=== PATIENT | male | born 1990 | race Caucasian/White ===

== ENCOUNTER 2016-09-06 18:37 | Emergency (ER) | payer SELFPAY ==
[2016-09-06] MEDS ORDERED: NORMAL SALINE 1000 ML 1,000 ML IV ONE (18:58)
[2016-09-06] MEDS ORDERED: MORPHINE SULFATE 10 MG/ML INJ IV ONE (18:58)
--- NOTE | 2016-09-06 18:58 | ER Document Report ---
ED Medical Screen (RME) - General Chief Complaint: Abdominal Pain Stated Complaint: RIGHT SIDE ABDOMINAL PAIN Time seen by provider: 18:56 Mode of Arrival: Wheelchair Information source: Patient Notes: 26-year-old male complaining of right lower quadrant abdominal pain that started mild 2 days ago. 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 No testicle pain no dysuria. He was nauseous yesterday. last food at 11:30am, last fluid to drink at 5 pm. TRAVEL OUTSIDE OF THE [place] IN LAST 30 DAYS: No Physical Exam - Vital signs Vitals: Temp Pulse Resp BP Pulse Ox 98.3 F 91 18 126/76 H 95 09/06/16 18:50 09/06/16 18:50 09/06/16 18:50 09/06/16 18:50 09/06/16 18:50 Course - Vital Signs Vital signs: Temp Pulse Resp BP Pulse Ox 98.3 F 91 18 126/76 H 95 09/06/16 18:50 09/06/16 18:50 09/06/16 18:50 09/06/16 18:50 09/06/16 18:50
[2016-09-06] MEDS ORDERED: ONDANSETRON HCL INJ/PF 4 MG/2 ML SDV IV ONE ×2 (18:59→22:20)
[2016-09-06 20:54] LABS: ABSOLUTE BASOPHILS # (AUTO) 0.1 10^3/uL (0.0-0.2); ABSOLUTE EOSINOPHILS # (AUTO) 0.1 10^3/uL (0.0-0.6); ABSOLUTE LYMPHOCYTES (AUTO) 2.6 10^3/uL (0.5-4.7); ABSOLUTE MONOCYTES (AUTO) 0.6 10^3/uL (0.1-1.4); BASOPHILS % (AUTO) 0.6 % (0-2); EOSINOPHILS % (AUTO) 0.6 % (0-6); HEMATOCRIT 43.9 % (37.9-51.0); HEMOGLOBIN 15.3 g/dL (13.5-17.0); LYMPHOCYTES % (AUTO) 23.2 % (13-45); MEAN CORPUSCULAR HGB CONC 34.9 g/dL (32.0-36.0); MEAN CORPUSCULAR VOLUME 83 fl (80-97); MONOCYTES % (AUTO) 5.3 % (3-13); RED BLOOD COUNT 5.27 10^6/uL (4.35-5.55); RED CELL DISTRIBUTION WIDTH 13.1 % (11.5-14.0); SEGMENTED NEUTROPHILS % (AUTO) 70.3 % (42-78); WHITE BLOOD COUNT 11.3 10^3/uL (4.0-10.5)
[2016-09-06 21:08] LABS: ALANINE AMINOTRANSFERASE 50 U/L (21-72); ALKALINE PHOSPHATASE 58 U/L (38-126); ANION GAP 10 (5-19); ASPARTATE AMINO TRANSFERASE 33 U/L (17-59); BILIRUBIN,TOTAL 1.4 mg/dL (0.2-1.3); BLOOD UREA NITROGEN 14 mg/dL (7-20); CALCIUM 9.2 mg/dL (8.4-10.2); CARBON DIOXIDE 28 mmol/L (22-30); CHLORIDE 103 mmol/L (98-107); CREATININE RESULT 0.98 mg/dL (0.52-1.25); GLUCOSE 83 mg/dL (75-110); SODIUM 141.2 mmol/L (137-145); TOTAL PROTEIN 6.6 g/dL (6.3-8.2)
[2016-09-06 21:43] LABS: APPEARANCE,URINE CLEAR; BILIRUBIN,URINE NEGATIVE (NEGATIVE); GLUCOSE, URINE NEGATIVE (NEGATIVE); KETONES,URINE NEGATIVE (NEGATIVE); LEUKOCYTE ESTERASE,URINE NEGATIVE (NEGATIVE); NITRITE,URINE NEGATIVE (NEGATIVE); PROTEIN,URINE NEGATIVE (NEGATIVE); URINE SPECIFIC GRAVITY 1.014; UROBILINOGEN,URINE NEGATIVE mg/dL (<2.0)
--- NOTE | 2016-09-06 22:20 | ER Document Report ---
ED GI/ - General Mode of Arrival: Wheelchair Information source: Patient TRAVEL OUTSIDE OF THE [place] IN LAST 30 DAYS: No - HPI Patient complains to provider of: Abdominal pain - RLQ Onset: Other - 2 days ago Location: RLQ Associated symptoms: Other - see above <ROBIN CORTEZ - Last Filed: 09/06/16 22:43> <ERNESTO RAM - Last Filed: 09/07/16 00:20> - General Chief Complaint: Abdominal Pain Stated Complaint: RIGHT SIDE ABDOMINAL PAIN Notes: 26 year old male with history of Aspergers presents to the ED complaining of RLQ abdominal pain that started 2 days ago but became worse today. Patient's mother states that she received a call at 1730 this evening stating that her son was doubled over in pain while at work. Patient states that the pain has been intermittent the past 2 days, but is more constant now. Patient states that he had a normal bowel movement while in the ED. Patient denies testicular pain, dysuria, or back pain. Patient denies history of UTIs. (ROBIN CORTEZ) - Related Data Allergies/Adverse Reactions: lorazepam [From Ativan] Allergy (Verified 09/06/16 19:00) steroids Allergy (Uncoded 09/06/16 19:00) Past Medical History - General Information source: Patient - Social History Smoking Status: Never Smoker Frequency of alcohol use: None Drug Abuse: None Family History: Reviewed & Not Pertinent Patient has suicidal ideation: No Patient has homicidal ideation: No Psychiatric Medical History: Reports: Hx Attention Deficit Hyperactivity Disorder Past Surgical History: Reports: Hx Cholecystectomy - Immunizations Hx Diphtheria, Pertussis, Tetanus Vaccination: Yes <ROBIN CORTEZ - Last Filed: 09/06/16 22:43> Review of Systems - Review of Systems Constitutional: No symptoms reported EENT: No symptoms reported Cardiovascular: No symptoms reported Respiratory: No symptoms reported Gastrointestinal: See HPI, Abdominal pain - RLQ, Last bowel movement - in ED prior to being seen Genitourinary: No symptoms reported. denies: Dysuria Male Genitourinary: No symptoms reported. denies: Testicular pain Musculoskeletal: No symptoms reported. denies: Back pain Skin: No symptoms reported Hematologic/Lymphatic: No symptoms reported Neurological/Psychological: No symptoms reported -: Yes All other systems reviewed and negative <ROBIN CORTEZ - Last Filed: 09/06/16 22:43> Physical Exam - Vital signs Interpretation: Normal - General General appearance: Alert In distress: None - HEENT Head: Normocephalic, Atraumatic Eyes: Normal Extraocular movements intact: Yes Pupils: PERRL - Respiratory Respiratory status: No respiratory distress Breath sounds: Normal - Cardiovascular Rhythm: Regular Heart sounds: Normal auscultation - Abdominal Inspection: Normal Distension: No distension Bowel sounds: Normal Tenderness: Tender - RLQ tenderness to palpation. No: Guarding, Rebound - Back Back: Normal - Extremities General upper extremity: Normal inspection, Normal ROM General lower extremity: Normal inspection, Normal ROM - Neurological Neuro grossly intact: Yes Cognition: Normal Orientation: AAOx4 [place] Coma Scale Eye Opening: Spontaneous [place] Coma Scale Verbal: Oriented [place] Coma Scale Motor: Obeys Commands [place] Coma Scale Total: 15 Speech: Normal - Psychological Associated symptoms: Normal affect, Normal mood - Skin Skin Temperature: Warm Skin Moisture: Dry Skin Color: Normal <ROBIN CORTEZ - Last Filed: 09/06/16 22:43> <ERNESTO RAM - Last Filed: 09/07/16 00:20> - Vital signs Vitals: Temp Pulse Resp BP Pulse Ox 98.3 F 91 18 126/76 H 95 09/06/16 18:50 09/06/16 18:50 09/06/16 18:50 09/06/16 18:50 09/06/16 18:50 (ROBIN CORTEZ) (ERNESTO RAM) Course - Laboratory Result Diagrams: 09/06/16 20:28 09/06/16 20:28 <ROBIN CORTEZ - Last Filed: 09/06/16 22:43> - Laboratory Result Diagrams: 09/06/16 20:28 09/06/16 20:28 <ERNESTO RAM - Last Filed: 09/07/16 00:20> - Re-evaluation Re-evalutation: 09/06/16 22:59 I personally performed the services described in the documentation, reviewed and edited the documentation which was dictated to my scribe in my presence, and it accurately records my words and actions. She presents emergency Department with a 2 day history of right-sided abdominal pain which got worse and severe work tonight doubled him over. He denies any history of trauma he is nauseated but not vomiting denies any diarrhea or blood in the stool history of Crohn's disease or ulcerative colitis. He is circumcised and denies any testicular pain or urinary symptoms. He also denies any flank pain fever or chills says his appetite is been decent. On physical examination his abdomen is soft is got tenderness in the right lower quadrant without rebound or rigidity. He was able to drink a bottle of contrast that was too nauseated refuses to drink anymore. He is currently going for his CT scan of the abdomen and pelvis. 09/07/16 00:[address] scan of the abdomen and pelvis negative for acute pathology including negative for acute appendicitis. Patient without guarding rebound rigidity peritoneal signs we'll DC 1-2 day follow primary care physician and discussed reasons for ED return sooner (ERNESTO RAM) - Vital Signs Vital signs: Temp Pulse Resp BP Pulse Ox 98.3 F 91 18 126/76 H 95 09/06/16 18:50 09/06/16 18:50 09/06/16 21:00 09/06/16 18:50 09/06/16 18:50 (ROBIN CORTEZ) (ERNESTO RAM) - Laboratory Laboratory results interpreted by me: 09/06/16 09/06/16 20:28 20:28 WBC 11.3 H Total Bilirubin 1.4 H (ROBIN CORTEZ) (ERNESTO RAM) Discharge <ROBIN CORTEZ - Last Filed: 09/06/16 22:43> <ERNESTO RAM - Last Filed: 09/07/16 00:20> - Discharge Clinical Impression: Abdominal pain Qualifiers: Abdominal location: right lower quadrant Qualified Code(s): R10.31 - Right lower quadrant pain Condition: Stable Disposition: HOME, SELF-CARE Additional Instructions: Abdominal Pain There are many causes of abdominal pain. Pain can mean a serious problem requiring surgery (such as appendicitis). It can also be an innocent problem that goes away on its own (such as a viral infection). Often, time must pass to determine the cause of pain. The physician does not feel that hospitalization is necessary, at present. Things may change within the next 24 hours. Call the doctor or come back for re- examination if any problems occur, such as: (1) Pain that becomes more severe, steady, or becomes concentrated in one specific area. Also, pain that is more severe with movement or coughing. (2) Vomiting that persists or becomes more frequent. (3) Blood in the vomitus, urine, or bowel movements. Blood in the stool may have a tarry or black appearance. (4) Shaking chills or fever greater than 100 degrees F. (5) The abdomen becomes more distended or swollen. (6) Bowel movements cease. (7) Failure to improve as expected. Referrals: MARION TREVIZO MD [Primary Care Provider] - Follow up tomorrow (Return to the ER sooner for increasing worsening or new symptoms) Scribe Documentation - Scribe Written by Mal:: Mal Drummond, 09/06/2016 22:48 acting as scribe for :: Gonzalez <ROBIN CORTEZ - Last Filed: 09/06/16 22:43>
[2016-09-07 01:10] VITALS: BP 127/84
== END 2016-09-07 01:10 | disposition home or self-care (01) ==
LOC: ER 18:37
DX: R10.31 Right lower quadrant pain (principal); Z90.49 Acquired absence of other specified parts of digestive tract
CPT/HCPCS: 99284; 96361; 96374; 96375; 36415; 85025; 80053; 81001; 74177; J2270; J2405; J7030

== ENCOUNTER 2019-09-08 19:27 | Emergency (ER) | payer SELFPAY ==
--- NOTE | 2019-09-08 20:15 | ER Document Report ---
ED Medical Screen (RME) - General Chief Complaint: Chest Pain Stated Complaint: CHEST PAIN,SHORTNESS OF BREATH Time Seen by Provider: 09/08/19 20:13 Primary Care Provider: MARION TREVIZO MD [Primary Care Provider] - Follow up as needed TRAVEL OUTSIDE OF THE [place] IN LAST 30 DAYS: No - HPI Notes: 09/08/19 20:15 Patient is a 29-year-old male with a history of Asperger's and ADHD who presents with mother complaining of an electricity type pain from his left clavicle area that radiates down into his left chest area that began this evening without any precipitating event. He does have some shortness of breath when the pain hits. He has not had any abdominal pain, nausea, vomiting, or fevers. No history of DVT or PE. No history of coronary artery disease. I have treated and performed a rapid initial assessment of this patient. A comprehensive ED assessment and evaluation of the patient, analysis of test results and completion of medical decision making process will be conducted by additional ED providers. PHYSICAL EXAMINATION: GENERAL: Well-appearing, well-nourished and in no acute distress. A&Ox4. Answers questions appropriately. Heart: RRR Lungs: CTAB Chest wall: There is some reproducibility to the tenderness to the left chest wall. - Related Data Allergies/Adverse Reactions: lorazepam [From Ativan] Allergy (Verified 09/08/19 20:06) steroids Allergy (Uncoded 09/06/16 19:00) Past Medical History Psychiatric Medical History: Reports: Hx Attention Deficit Hyperactivity Disorder Past Surgical History: Reports: Hx Cholecystectomy - Immunizations Hx Diphtheria, Pertussis, Tetanus Vaccination: Yes Physical Exam - Vital signs Vitals: Temp Pulse Resp BP Pulse Ox 98.0 F 83 20 109/69 95 09/08/19 19:39 09/08/19 19:39 09/08/19 19:39 09/08/19 19:39 09/08/19 19:39 Course - Vital Signs Vital signs: Temp Pulse Resp BP Pulse Ox 98.0 F 83 20 109/69 95 09/08/19 19:39 09/08/19 19:39 09/08/19 19:39 09/08/19 19:39 09/08/19 19:39 Doctor's Discharge - Discharge Referrals: MARION TREVIZO MD [Primary Care Provider] - Follow up as needed
[2019-09-08] MEDS ORDERED: ACETAMINOPHEN 325 MG TABLET PO ONE (20:17)
[2019-09-08 20:49] LABS: ABSOLUTE BASOPHILS # (AUTO) 0.1 10^3/uL (0.0-0.2); ABSOLUTE EOSINOPHILS # (AUTO) 0.1 10^3/uL (0.0-0.6); ABSOLUTE LYMPHOCYTES (AUTO) 2.5 10^3/uL (0.5-4.7); ABSOLUTE MONOCYTES (AUTO) 0.6 10^3/uL (0.1-1.4); ABSOLUTE NEUT (AUTO) 4.3 10^3/uL (1.7-8.2); EOSINOPHILS % (AUTO) 0.8 % (0-6); HEMATOCRIT 41.5 % (37.9-51.0); HEMOGLOBIN 14.4 g/dL (13.5-17.0); MEAN CORPUSCULAR HEMOGLOBIN 29.4 pg (27.0-33.4); MEAN CORPUSCULAR HGB CONC 34.8 g/dL (32.0-36.0); MEAN CORPUSCULAR VOLUME 85 fl (80-97); MONOCYTES % (AUTO) 8.2 % (3-13); PLATELET COUNT 221 10^3/uL (150-450); RED BLOOD COUNT 4.92 10^6/uL (4.35-5.55); RED CELL DISTRIBUTION WIDTH 13.3 % (11.5-14.0); TOTAL CELLS COUNTED % (AUTO) 100 %; WHITE BLOOD COUNT 7.6 10^3/uL (4.0-10.5)
--- NOTE | 2019-09-08 20:54 | RADIOLOGY REPORT (SQ) ---
EXAM DESCRIPTION: XR CHEST 1 VIEW COMPLETED DATE/TME: 09/08/2019 20:17 CLINICAL HISTORY: 29 years, Male, CP COMPARISON: None. NUMBER OF VIEWS: TECHNIQUE: LIMITATIONS: None. FINDINGS: No evidence of pulmonary infiltrate or pleural effusion. The heart and mediastinum are unremarkable. Pulmonary vascularity appears normal. IMPRESSION: No acute finding. copyright 2010 [facility]- All Rights Reserved
[2019-09-08 21:09] LABS: ALBUMIN 4.3 g/dL (3.5-5.0); ALKALINE PHOSPHATASE 54 U/L (38-126); ANION GAP 12 (5-19); ASPARTATE AMINO TRANSFERASE 23 U/L (17-59); BILIRUBIN,DIRECT 0.1 mg/dL (0.0-0.4); BILIRUBIN,TOTAL 1.2 mg/dL (0.2-1.3); BLOOD UREA NITROGEN 8 mg/dL (7-20); CALCIUM 9.5 mg/dL (8.4-10.2); CARBON DIOXIDE 27 mmol/L (22-30); CHLORIDE 102 mmol/L (98-107); GLUCOSE 80 mg/dL (75-110); POTASSIUM 3.9 mmol/L (3.6-5.0); TOTAL PROTEIN 7.5 g/dL (6.3-8.2)
[2019-09-08] MEDS ORDERED: KETOROLAC TROMETHAMINE INJ/PF 30 MG/1 ML SDV IV ONE (21:37)
--- NOTE | 2019-09-08 23:19 | ER Document Report ---
Entered by IFTIKHAR MCKEON SCRIBE 09/08/192039 Acting as scribe for:VIDAL CHAND IV, MD ED General - General Chief Complaint: Chest Pain Stated Complaint: CHEST PAIN,SHORTNESS OF BREATH Time Seen by Provider: 09/08/19 20:13 Primary Care Provider: MARION TREVIZO MD [Primary Care Provider] - Follow up as needed Mode of Arrival: Ambulatory Information source: Patient Notes: This 29 year old male patient presents to the emergency department today with complaints of reproducible left sided chest pain. Patient reports that he was sitting on his bed watching tv when he felt a "jolt of lightning" that radiated from his left shoulder to his left chest. This pain is reproducible with movement and anterior chest wall palpation. Patient also mentions that certain movements seem to reproduce his pain. Patient denies a history of chest pain or any cardiac history. TRAVEL OUTSIDE OF THE [place] IN LAST 30 DAYS: No - Related Data Allergies/Adverse Reactions: lorazepam [From Ativan] Allergy (Verified 09/08/19 20:06) steroids Allergy (Uncoded 09/06/16 19:00) Past Medical History - General Information source: Patient - Social History Smoking Status: Never Smoker Cigarette use (# per day): No Chew tobacco use (# tins/day): No Frequency of alcohol use: None Drug Abuse: None Lives with: Family Family History: Reviewed & Not Pertinent Patient has suicidal ideation: No Patient has homicidal ideation: No Psychiatric Medical History: Reports: Hx Attention Deficit Hyperactivity Disorder Past Surgical History: Reports: Hx Cholecystectomy - Immunizations Hx Diphtheria, Pertussis, Tetanus Vaccination: Yes Review of Systems - Review of Systems Constitutional: No symptoms reported EENT: No symptoms reported Cardiovascular: See HPI, Chest pain - reproducible Respiratory: No symptoms reported Gastrointestinal: No symptoms reported Genitourinary: No symptoms reported Male Genitourinary: No symptoms reported Musculoskeletal: No symptoms reported Skin: No symptoms reported Hematologic/Lymphatic: No symptoms reported Neurological/Psychological: No symptoms reported -: Yes All other systems reviewed and negative Physical Exam - Vital signs Vitals: Temp Pulse Resp BP Pulse Ox 98.0 F 83 20 109/69 95 09/08/19 19:39 09/08/19 19:39 09/08/19 19:39 09/08/19 19:39 09/08/19 19:39 Interpretation: Normal - General General appearance: Appears well, Alert - HEENT Head: Normocephalic, Atraumatic Eyes: Normal Pupils: PERRL - Respiratory Respiratory status: No respiratory distress Chest status: Nontender Breath sounds: Normal Chest palpation: Normal - Cardiovascular Rhythm: Regular Heart sounds: Normal auscultation Murmur: No - Abdominal Inspection: Normal Distension: No distension Bowel sounds: Normal Tenderness: Nontender Organomegaly: No organomegaly - Back Back: Normal, Nontender - Extremities General upper extremity: Normal inspection, Nontender, Normal color, Normal ROM, Normal temperature General lower extremity: Normal inspection, Nontender, Normal color, Normal ROM, Normal temperature, Normal weight bearing. No: Amisha's sign - Neurological Neuro grossly intact: Yes Cognition: Normal Orientation: AAOx4 [place] Coma Scale Eye Opening: Spontaneous [place] Coma Scale Verbal: Oriented [place] Coma Scale Motor: Obeys Commands [place] Coma Scale Total: 15 Speech: Normal Motor strength normal: LUE, RUE, LLE, RLE Sensory: Normal - Psychological Associated symptoms: Normal affect, Normal mood - Skin Skin Temperature: Warm Skin Moisture: Dry Skin Color: Normal Course - Re-evaluation Re-evalutation: 09/08/19 23:27 Patient states his pain has improved and is currently down to a 2 on a 0-5 scale after IV Toradol. Results of ED MSE discussed with patient and patient's mother. All questions were answered. Emergency signs and symptoms, reasons to return to the emergency department discussed with patient and patient's mother. - Vital Signs Vital signs: Temp Pulse Resp BP Pulse Ox 98.0 F 83 20 109/69 98 09/08/19 19:39 09/08/19 19:39 09/08/19 19:39 09/08/19 19:39 09/08/19 20:35 - Laboratory Result Diagrams: 09/08/19 20:35 09/08/19 20:35 - EKG Interpretation by Me Additional EKG results interpreted by me: 09/08/19 20:48 EKG obtained on 09/08/2019 at 1943 hrs. was interpreted by this MD. Findings: Normal sinus rhythm, rate 76, normal axis, P waves proceed QRS complexes, QRS complexes appear narrow, there are no obvious patterns of ST segment elevation or depression to suggest myocardial ischemia or infarction. Impression normal sinus rhythm with nonspecific ST segments. Discharge - Discharge Clinical Impression: Acute chest wall pain Condition: Good Disposition: HOME, SELF-CARE Instructions: Chest Pain of Unclear Cause ([facility]) Additional Instructions: Return to the Emergency Department without delay if any worse. HOME CARE INSTRUCTIONS & INFORMATION: Thank you for choosing us for your medical needs. We hope you're satisfied with the care you received. After you leave, you must properly care for your problem and, at the same time, observe its progress. Any condition can change. Some illnesses can change rapidly over hours or days. If your condition worsens, return to the Emergency Department or see your physician promptly. ABOUT YOUR X-RAYS AND EKG'S: If you had an EKG or X-rays taken, they have been read by the Emergency Physician. The X-rays and EKG's will also be read by a Radiologist or Pattern Shop Supervisor within 24 hours. If discrepancies are noted, you will be notified by telephone. Please be certain the ED has a correct telephone number & address where you can be reached. Also, realize that some fractures or abnormalities do not show up on initial X-rays. If your symptoms continue, see your physician. ABOUT YOUR LABORATORY TEST: If you had laboratory tests, the results have been reviewed by the Emergency Physician. Some test results (for example cultures) may not be available for several days. You will be contacted if any test result shows you need additional treatment. Please be certain the ED has a correct telephone number and address where you can be reached. ABOUT YOUR MEDICATIONS: You will receive instructions on how to take your medicine on the prescription label you receive. Additional information may be provided by the Pharmacy. If you have questions afterwards, call the ED for clarification or further instructions. Some prescribed medications may cause drowsiness. Do not perform tasks such as driving a car or operating machinery without consulting your Pharmacist. If you feel you need a refill of pain medication, your condition will need re-evaluation. Please do not call for a refill of any medication. ABOUT YOUR SIGNATURE: Signature of this document acknowledges to followin. Understanding that you received emergency treatment and that you may be released before al medical problems are known or treated. Please be certain the ED has a correct phone number & address where you can be reached. 2. Acknowledgement that you will arrange for follow-up care as recommended. 3. Authorization for the Emergency Physician to provide information to your follow-up Physician in order to maximize your care. AT ANY TIME, IF YOUR SYMPTOMS CHANGE SIGNIFICANTLY OR WORSEN OR YOU DEVELOP NEW SYMPTOMS, RETURN TO THE EMERGENCY DEPARTMENT IMMEDIATELY FOR RE-EVALUATION. OUR GOAL IS TO PROVIDE EXCELLENT MEDICAL CARE! WE HOPE THAT WE HAVE MET YOUR EXPECTATIONS DURING YOUR EMERGENCY DEPARTMENT VISIT AND THAT YOU FEEL YOU HAVE RECEIVED EXCELLENT CARE! Referrals: MARION TREVIZO MD [Primary Care Provider] - Follow up as needed I personally performed the services described in the documentation, reviewed and edited the documentation which was dictated to the scribe in my presence, and it accurately records my words and actions.
[2019-09-08 23:36] VITALS: BP 111/71
--- NOTE | 2019-09-09 17:48 | EKG REPORT ---
SEVERITY:- NORMAL ECG - SINUS RHYTHM : Confirmed by: Poli Sher 09-Sep-2019 17:48:29
== END 2019-09-08 23:40 | disposition home or self-care (01) ==
LOC: ER 19:27
DX: R07.89 Other chest pain (principal); R06.02 Shortness of breath; M25.512 Pain in left shoulder
CPT/HCPCS: 93005; 99284; 96374; 36415; 85025; 80053; 84484; 71045; 93010; J1885

== ENCOUNTER 2019-09-24 11:47 | Emergency (ER) | payer SELFPAY ==
[2019-09-24] MEDS ORDERED: ONDANSETRON HCL INJ/PF 4 MG/2 ML SDV IV ONE (13:20)
[2019-09-24] MEDS ORDERED: MORPHINE SULFATE 10 MG/ML INJ IV ONE ×2 (13:21→16:26)
[2019-09-24] MEDS ORDERED: KETOROLAC TROMETHAMINE INJ/PF 30 MG/1 ML SDV IV ONE (13:23)
--- NOTE | 2019-09-24 13:25 | ER Document Report ---
ED Medical Screen (RME) - General Chief Complaint: Abdominal Pain Stated Complaint: ABDOMINAL PAIN Time Seen by Provider: 09/24/19 13:14 Primary Care Provider: AMRION TREVIZO MD [Primary Care Provider] - Follow up as needed Notes: Patient is a 29-year-old male with a history of celiac disease who presents emergency department with a chief complaint of abdominal pain. Mother reports the patient has complained of mid to lower abdominal pain all weekend. She reports she does have celiac disease and that this is similar to his celiac type pain. She reports this diagnosis was made 1 year ago. She reports he has been using Bentyl and Ultram without any relief. Does report 2 episodes of diarrhea that is nonbloody over the weekend. Reports nausea without vomiting. Denies fever. Mother reports that they attempted to pinpoint what exacerbated his pain but they were unable to. TRAVEL OUTSIDE OF THE [place] IN LAST 30 DAYS: No - Related Data Allergies/Adverse Reactions: lorazepam [From Ativan] Allergy (Verified 09/08/19 20:06) steroids Allergy (Uncoded 09/06/16 19:00) Home Medications: Respridol Past Medical History - Social History Chew tobacco use (# tins/day): No Frequency of alcohol use: None Drug Abuse: None Psychiatric Medical History: Reports: Hx Attention Deficit Hyperactivity Disorder Past Surgical History: Reports: Hx Cholecystectomy - Immunizations Hx Diphtheria, Pertussis, Tetanus Vaccination: Yes Physical Exam - Vital signs Vitals: Temp Pulse Resp BP Pulse Ox 98.1 F 79 18 91/58 L 100 09/24/19 11:59 09/24/19 11:59 09/24/19 11:59 09/24/19 11:59 09/24/19 11:59 - Abdominal Inspection: Normal Distension: No distension Bowel sounds: Hyperactive Tenderness: Tender - Mid to lower abdominal tenderness generalized. Course - Re-evaluation Re-evalutation: 09/24/19 13:25 Patient appears uncomfortable in triage. Will initiate IV, IV fluids, basic labs and a dose of pain medication with nausea medication. I have greeted and performed a rapid initial assessment of this patient. A comprehensive ED assessment and evaluation of the patient, analysis of test results and completion of the medical decision making process will be conducted by additional ED providers. - Vital Signs Vital signs: Temp Pulse Resp BP Pulse Ox 98.1 F 79 18 91/58 L 100 09/24/19 11:59 09/24/19 11:59 09/24/19 11:59 09/24/19 11:59 09/24/19 11:59 Doctor's Discharge - Discharge Referrals: MARION TREVIZO MD [Primary Care Provider] - Follow up as needed
[2019-09-24] MEDS ORDERED: NORMAL SALINE 1000 ML 1,000 ML IV ONE (13:53)
--- NOTE | 2019-09-24 14:04 | ER Document Report ---
ED General - General Chief Complaint: Abdominal Pain Stated Complaint: ABDOMINAL PAIN Time Seen by Provider: 09/24/19 13:14 Primary Care Provider: MARION TREVIZO MD [Primary Care Provider] - Follow up as needed Mode of Arrival: Ambulatory Information source: Patient TRAVEL OUTSIDE OF THE [place] IN LAST 30 DAYS: No - HPI Notes: Patient presents with abdominal pain. He states that this pain started approximate 2 days ago. It is been diffusely about the abdomen but is now mainly in the lower quadrants. It is severe constant and crampy. It radiates from one side of the lower abdomen to the other. He states he has been di agnosed with celiac disease by radiology equipment servicer. He states this was done by blood work as well as endoscopy. He states that he is only had one previous abdominal surgery which was a cholecystectomy. He has had vomiting and some loose stool. No problems with urination. No fevers. Patient states his pain does feel similar to previous celiac disease pain. - Related Data Allergies/Adverse Reactions: lorazepam [From Ativan] Allergy (Verified 09/08/19 20:06) steroids Allergy (Uncoded 09/06/16 19:00) Home Medications: Respridol Past Medical History - General Information source: Patient - Social History Smoking Status: Never Smoker Chew tobacco use (# tins/day): No Frequency of alcohol use: None Drug Abuse: None Family History: Reviewed & Not Pertinent Patient has suicidal ideation: No Patient has homicidal ideation: No Psychiatric Medical History: Reports: Hx Attention Deficit Hyperactivity Disorder Past Surgical History: Reports: Hx Cholecystectomy - Immunizations Hx Diphtheria, Pertussis, Tetanus Vaccination: Yes Review of Systems - Review of Systems Constitutional: Malaise, Weakness. denies: Chills, Fever Cardiovascular: denies: Chest pain, Palpitations Respiratory: denies: Cough, Short of breath -: Yes All other systems reviewed and negative Physical Exam - Vital signs Vitals: Temp Pulse Resp BP Pulse Ox 98.1 F 79 18 91/58 L 100 09/24/19 11:59 09/24/19 11:59 09/24/19 11:59 09/24/19 11:59 09/24/19 11:59 Interpretation: Normal - General General appearance: Appears well, Alert - HEENT Head: Normocephalic, Atraumatic Eyes: Normal Pupils: PERRL - Respiratory Respiratory status: No respiratory distress Chest status: Nontender Breath sounds: Normal Chest palpation: Normal - Cardiovascular Rhythm: Regular Heart sounds: Normal auscultation Murmur: No - Abdominal Inspection: Normal Distension: No distension Bowel sounds: Normal Tenderness: Tender - Patient is tender in the lower quadrants but greatest in the right lower quadrant. He does appear to have some voluntary guarding in the right lower quadrant. Organomegaly: No organomegaly - Back Back: Normal, Nontender - Extremities General upper extremity: Normal inspection, Nontender, Normal color, Normal ROM, Normal temperature General lower extremity: Normal inspection, Nontender, Normal color, Normal ROM, Normal temperature, Normal weight bearing. No: Amisha's sign - Neurological Neuro grossly intact: Yes Cognition: Normal Orientation: AAOx4 [place] Coma Scale Eye Opening: Spontaneous [place] Coma Scale Verbal: Oriented [place] Coma Scale Motor: Obeys Commands [place] Coma Scale Total: 15 Speech: Normal Motor strength normal: LUE, RUE, LLE, RLE Sensory: Normal - Psychological Associated symptoms: Normal affect, Normal mood - Skin Skin Temperature: Warm Skin Moisture: Dry Skin Color: Normal Course - Re-evaluation Re-evalutation: 09/24/19 18:42 Patient reevaluated at approximately 6:20 PM. Abdominal pain is significantly improved. He has no surgical abdominal signs. Vital signs are stable. CT scan shows no evidence of acute intra-abdominal pathology. Laboratories are stable. This appears to be an exacerbation of the patient's chronic celiac disease. Patient and mother are okay with discharge and will follow-up as an outpatient. - Vital Signs Vital signs: Temp Pulse Resp BP Pulse Ox 98.7 F 77 18 117/69 97 09/24/19 16:51 09/24/19 16:51 09/24/19 16:51 09/24/19 16:51 09/24/19 16:51 - Laboratory Result Diagrams: 09/24/19 14:15 09/24/19 14:15 - Diagnostic Test Radiology reviewed: Image reviewed, Reports reviewed Discharge - Discharge Clinical Impression: Adult celiac disease, Acute bilateral lower abdominal pain Condition: Stable Disposition: HOME, SELF-CARE Instructions: Abdominal Pain ([facility]), Oral Narcotic Medication ([facility]) Prescriptions: Hydrocodone/Acetaminophen [[place] 5-325 mg Tablet] 1 tab PO Q6 PRN 3 Days #12 tablet PRN Reason: Referrals: MARION TREVIZO MD [Primary Care Provider] - Follow up in 3-5 days
[2019-09-24 14:38] LABS: ABSOLUTE BASOPHILS # (AUTO) 0.1 10^3/uL (0.0-0.2); ABSOLUTE EOSINOPHILS # (AUTO) 0.1 10^3/uL (0.0-0.6); ABSOLUTE LYMPHOCYTES (AUTO) 2.4 10^3/uL (0.5-4.7); ABSOLUTE MONOCYTES (AUTO) 0.6 10^3/uL (0.1-1.4); ABSOLUTE NEUT (AUTO) 4.3 10^3/uL (1.7-8.2); BASOPHILS % (AUTO) 0.9 % (0-2); EOSINOPHILS % (AUTO) 0.9 % (0-6); HEMATOCRIT 42.8 % (37.9-51.0); HEMOGLOBIN 14.8 g/dL (13.5-17.0); MEAN CORPUSCULAR HEMOGLOBIN 29.6 pg (27.0-33.4); MEAN CORPUSCULAR HGB CONC 34.7 g/dL (32.0-36.0); MEAN CORPUSCULAR VOLUME 85 fl (80-97); MONOCYTES % (AUTO) 8.3 % (3-13); PLATELET COUNT 218 10^3/uL (150-450); RED BLOOD COUNT 5.02 10^6/uL (4.35-5.55); RED CELL DISTRIBUTION WIDTH 13.6 % (11.5-14.0); SEGMENTED NEUTROPHILS % (AUTO) 57.9 % (42-78); TOTAL CELLS COUNTED % (AUTO) 100 %; WHITE BLOOD COUNT 7.4 10^3/uL (4.0-10.5)
[2019-09-24 14:56] LABS: ALBUMIN 4.3 g/dL (3.5-5.0); ALKALINE PHOSPHATASE 61 U/L (38-126); ANION GAP 9 (5-19); ASPARTATE AMINO TRANSFERASE 23 U/L (17-59); BILIRUBIN,DIRECT 0.3 mg/dL (0.0-0.4); BILIRUBIN,TOTAL 1.2 mg/dL (0.2-1.3); BLOOD UREA NITROGEN 12 mg/dL (7-20); CALCIUM 9.5 mg/dL (8.4-10.2); CARBON DIOXIDE 30 mmol/L (22-30); CHLORIDE 102 mmol/L (98-107); GLUCOSE 77 mg/dL (75-110); POTASSIUM 4.1 mmol/L (3.6-5.0); TOTAL PROTEIN 7.4 g/dL (6.3-8.2)
[2019-09-24 15:04] LABS: APPEARANCE,URINE CLEAR; BILIRUBIN,URINE NEGATIVE (NEGATIVE); COLOR,URINE YELLOW; GLUCOSE, URINE NEGATIVE (NEGATIVE); KETONES,URINE NEGATIVE (NEGATIVE); LEUKOCYTE ESTERASE,URINE NEGATIVE (NEGATIVE); NITRITE,URINE NEGATIVE (NEGATIVE); PROTEIN,URINE NEGATIVE (NEGATIVE); URINE SPECIFIC GRAVITY 1.016; UROBILINOGEN,URINE NEGATIVE mg/dL (<2.0)
--- NOTE | 2019-09-24 17:42 | RADIOLOGY REPORT (SQ) ---
EXAM DESCRIPTION: CT ABD/PELVIS WITH IV ORAL COMPLETED DATE/TIME: 09/24/2019 4:30 pm REASON FOR STUDY: rlq pain COMPARISON: CT of the abdomen pelvis with contrast from 09/06/2016. TECHNIQUE: CT scan of the abdomen and pelvis performed using helical scanning technique with dynamic intravenous contrast injection. No oral contrast. Images reviewed with lung, soft tissue, and bone windows. Reconstructed coronal and sagittal MPR images reviewed. Delayed images for evaluation of the urinary system also acquired. All images stored on PACS. All CT scanners at this facility use dose modulation, iterative reconstruction, and/or weight based d osing when appropriate to reduce radiation dose to as low as reasonably achievable (ALARA). [facility]: Dose Right [facility]: CareDose [facility]: Dose Right [facility]: Teradose 4D [facility]: [employer] CONTRAST TYPE AND DOSE: Contrast/concentration: Isovue 350.00 mg/ml; Total Contrast Delivered: 98.0 ml; Total Saline Delivered: 72.0 ml RENAL FUNCTION: None required. The patient is less than 50 years old. RADIATION DOSE: CT Rad equipment meets quality standard of care and radiation dose reduction techniq ues were employed. CTDIvol: 13.4 - 17.8 mGy. DLP: 1780 mGy-cm.. LIMITATIONS: None. FINDINGS: LOWER CHEST: No acute findings LIVER: The morphology of the liver is non cirrhotic. The portal veins are patent. There is no hepat ic mass. SPLEEN: No splenomegaly or splenic mass. PANCREAS: No acute abnormality. GALLBLADDER: The gallbladder is surgically absent. ADRENAL GLANDS: No mass or asymmetry. RIGHT KIDNEY AND URETER: No solid masses. No calcifications. No hydronephrosis or hydroureter. LEFT KIDNEY AND URETER: No solid masses. No calcifications. No hydronephrosis or hydroureter. AORTA AND VESSELS: No aneurysm or dissection of the abdominal aorta. There is a variant circumaortic left renal vein. RETROPERITONEUM: No retroperitoneal adenopathy, hemorrhage or mass. BOWEL AND PERITONEAL CAVITY: No bowel obstruction, bowel wall thickening or pericolonic/ perienteric inflammation. No mesenteric adenopathy, free intraperitoneal fluid, or mesenteric/omental inflammati on. APPENDIX: Normal. PELVIS: The urinary bladder is distended and normal in appearance. The prostate gland is normal in s ize. ABDOMINAL WALL: No masses or hernias. 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 There is no acute fracture. OTHER: No other finding. IMPRESSION: No acute intra-abdominal abnormality. TECHNICAL DOCUMENTATION: JOB ID: [id number] Quality ID # 436: Final reports with documentation of one or more dose reduction techniques (e.g., Au tomated exposure control, adjustment of the mA and/or kV according to patient size, use of iterative reconstruction technique) 2010 [employer]- All Rights Reserved Reading location - IP/workstation name: [email or web address]
[2019-09-24 19:01] VITALS: BP 117/67
== END 2019-09-24 19:02 | disposition home or self-care (01) ==
LOC: ER 11:47
DX: K90.0 Celiac disease (principal); R10.30 Lower abdominal pain, unspecified; R53.81 Other malaise
CPT/HCPCS: 99284; 96361; 96374; 96375; 36415; 83690; 85025; 80053; 81001; 74177; J1885; J2270; J2405; J7030

== ENCOUNTER 2019-10-12 17:54 | Emergency (ER) | payer SELFPAY ==
--- NOTE | 2019-10-12 19:13 | ER Document Report ---
ED Medical Screen (RME) - General Chief Complaint: General Weakness Stated Complaint: GENERAL WEAKNESS Time Seen by Provider: 10/12/19 19:10 Primary Care Provider: MARION TREVIZO MD [Primary Care Provider] - Follow up as needed Mode of Arrival: Wheelchair Information source: Patient Notes: 29-year-old male presented to ED for complaint of headache eye pain and fatigue. He states he is a level for pain. Mother states he has been sleeping all the time she has to constantly wake him up and goes right back to sleep. He does have a history of a Chiari malformation Asperger's schizophrenia social anxiety depression and asthma. Nonverbal in the pit area. Acting like he needs to go to sleep and holding his hands over his ears. I have greeted and performed a rapid initial assessment of this patient. A comprehensive ED assessment and evaluation of the patient, analysis of test results and completion of medical decision making process will be conducted by an additional ED providers. TRAVEL OUTSIDE OF THE [place] IN LAST 30 DAYS: No - Related Data Allergies/Adverse Reactions: lorazepam [From Ativan] Allergy (Verified 09/08/19 20:06) steroids Allergy (Uncoded 09/06/16 19:00) Past Medical History Psychiatric Medical History: Reports: Hx Attention Deficit Hyperactivity Disorder Past Surgical History: Reports: Hx Cholecystectomy - Immunizations Hx Diphtheria, Pertussis, Tetanus Vaccination: Yes Physical Exam - Vital signs Vitals: Temp Pulse Resp BP Pulse Ox 98 F 78 18 119/80 100 10/12/19 18:46 10/12/19 18:46 10/12/19 18:46 10/12/19 18:46 10/12/19 18:46 Course - Vital Signs Vital signs: Temp Pulse Resp BP Pulse Ox 98 F 78 18 119/80 100 10/12/19 18:46 10/12/19 18:46 10/12/19 18:46 10/12/19 18:46 10/12/19 18:46 Doctor's Discharge - Discharge Referrals: MARION TREVIZO MD [Primary Care Provider] - Follow up as needed
[2019-10-12 19:53] LABS: ABSOLUTE BASOPHILS # (AUTO) 0.1 10^3/uL (0.0-0.2); ABSOLUTE EOSINOPHILS # (AUTO) 0.1 10^3/uL (0.0-0.6); ABSOLUTE LYMPHOCYTES (AUTO) 2.2 10^3/uL (0.5-4.7); ABSOLUTE MONOCYTES (AUTO) 0.5 10^3/uL (0.1-1.4); ABSOLUTE NEUT (AUTO) 4.2 10^3/uL (1.7-8.2); EOSINOPHILS % (AUTO) 1.1 % (0-6); HEMATOCRIT 42.9 % (37.9-51.0); HEMOGLOBIN 14.7 g/dL (13.5-17.0); LYMPHOCYTES % (AUTO) 30.9 % (13-45); MEAN CORPUSCULAR HEMOGLOBIN 29.1 pg (27.0-33.4); MEAN CORPUSCULAR HGB CONC 34.4 g/dL (32.0-36.0); MEAN CORPUSCULAR VOLUME 85 fl (80-97); MONOCYTES % (AUTO) 7.2 % (3-13); PLATELET COUNT 225 10^3/uL (150-450); RED BLOOD COUNT 5.07 10^6/uL (4.35-5.55); RED CELL DISTRIBUTION WIDTH 13.5 % (11.5-14.0); SEGMENTED NEUTROPHILS % (AUTO) 59.8 % (42-78); TOTAL CELLS COUNTED % (AUTO) 100 %
[2019-10-12 20:02] LABS: APPEARANCE,URINE CLEAR; BILIRUBIN,URINE NEGATIVE (NEGATIVE); COLOR,URINE YELLOW; GLUCOSE, URINE NEGATIVE (NEGATIVE); KETONES,URINE NEGATIVE (NEGATIVE); PROTEIN,URINE NEGATIVE (NEGATIVE); UROBILINOGEN,URINE NEGATIVE mg/dL (<2.0)
[2019-10-12 20:20] LABS: ALBUMIN 4.4 g/dL (3.5-5.0); ALKALINE PHOSPHATASE 68 U/L (38-126); ANION GAP 12 (5-19); ASPARTATE AMINO TRANSFERASE 23 U/L (17-59); BILIRUBIN,DIRECT 0.1 mg/dL (0.0-0.4); BILIRUBIN,TOTAL 1.2 mg/dL (0.2-1.3); BLOOD UREA NITROGEN 15 mg/dL (7-20); CALCIUM 9.6 mg/dL (8.4-10.2); CARBON DIOXIDE 26 mmol/L (22-30); CHLORIDE 103 mmol/L (98-107); GLUCOSE 91 mg/dL (75-110); POTASSIUM 4.2 mmol/L (3.6-5.0); TOTAL PROTEIN 7.6 g/dL (6.3-8.2)
--- NOTE | 2019-10-12 21:29 | RADIOLOGY REPORT (SQ) ---
EXAM DESCRIPTION: CT HEAD WITHOUT IV CONTRAST COMPLETED DATE/TME: 10/12/2019 00:00 CLINICAL HISTORY: 29 years, Male, NEGRON; hx chiari malformation COMPARISON: None. TECHNIQUE: Images stored on PACS. All CT scanners at this facility use dose modulation, iterative reconstruction, and/or weight based dosing when appropriate to reduce radiation dose to as low as reasonably achievable (ALARA). [facility]: Dose Right [facility]: CareDose [facility]: Dose Right [facility]: Teradose 4D [facility]: [employer] LIMITATIONS: None. FINDINGS: Taveras-white differentiation is normal. The ventricles and extracerebral spaces are within normal limits for age. No evidence of mass lesion, positive mass effect, or intracranial hemorrhage. The orbits and eyeballs are unremarkable. Paranasal sinuses and mastoid air cells are clear. There do appear to be low-lying cerebellar tonsils without obvious Chiari I malformation. The posterior fossa imaging is degraded by streak artifact on CT. Chiari malformation is best evaluated with MRI IMPRESSION: No acute intracranial process is identified TECHNICAL DOCUMENTATION: Quality ID # 436: Final reports with documentation of one or more dose reduction techniques (e.g., Automated exposure control, adjustment of the mA and/or kV according to patient size, use of iterative reconstruction technique) copyright 2011 [employer]- All Rights Reserved
[2019-10-12] MEDS ORDERED: ONDANSETRON HCL INJ/PF 4 MG/2 ML SDV IV ONE (21:54)
[2019-10-12] MEDS ORDERED: NORMAL SALINE 1000 ML 1,000 ML IV ONE (21:57)
[2019-10-12] MEDS ORDERED: KETOROLAC TROMETHAMINE INJ/PF 30 MG/1 ML SDV IV ONE (21:57)
[2019-10-12 22:53] LABS: A TYPE INFLUENZA AG NEGATIVE (NEGATIVE); B INFLUENZA AG NEGATIVE (NEGATIVE)
[2019-10-12] MEDS ORDERED: CEFTRIAXONE INJ 1000 MG VIAL IV ONE (23:07)
[2019-10-12] MEDS ORDERED: DICYCLOMINE HCL 20 MG TABLET PO ONE (23:30)
[2019-10-12] MEDS ORDERED: FAMOTIDINE 20 MG TABLET PO ONE (23:30)
[2019-10-12] MEDS ORDERED: CLONIDINE HCL 0.1 MG TABLET PO ONE (23:30)
[2019-10-12] MEDS ORDERED: RISPERIDONE 1 MG TABLET PO ONE (23:30)
[2019-10-12] MEDS ORDERED: BENZTROPINE MESYLATE 1 MG TABLET PO ONE (23:30)
[2019-10-13] MEDS ORDERED: CLONIDINE HCL 0.2 MG TABLET PO ONE (00:24)
[2019-10-13] MEDS ORDERED: DIPHENHYDRAMINE HCL 50 MG/ML VIAL IV ONE (00:25)
[2019-10-13] MEDS ORDERED: LIDOCAINE 1% INJ-PF (10 MG/ML) 30 ML SDV INJ ONE (00:26)
--- NOTE | 2019-10-13 02:03 | ER Document Report ---
ED General - General Mode of Arrival: Wheelchair TRAVEL OUTSIDE OF THE [place] IN LAST 30 DAYS: No <MOIRA VERMA - Last Filed: 10/13/19 01:58> <VIDAL CHAND IV - Last Filed: 10/13/19 04:26> - General Chief Complaint: General Weakness Stated Complaint: GENERAL WEAKNESS Time Seen by Provider: 10/12/19 19:10 Primary Care Provider: MARION TREVIZO MD [Primary Care Provider] - Follow up as needed - HPI Notes: 29-year-old male presented to ED for complaint of headache eye pain and fatigue. Diffuse throbhbing NEGRON x2 days. Mother states he has been sleeping all the time she has to constantly wake him up and goes right back to sleep. He does have a history of a Chiari malformation Asperger's schizophrenia social anxiety depression and asthma. No fever or rash. No injury or fall. Acting like he needs to go to sleep and holding his hands over his ears. (MOIRA VERMA) - Related Data Allergies/Adverse Reactions: lorazepam [From Ativan] Allergy (Verified 10/12/19 21:05) steroids Allergy (Uncoded 10/12/19 21:05) Past Medical History - General Information source: Patient - Social History Smoking Status: Never Smoker Frequency of alcohol use: None Drug Abuse: None Family History: Reviewed & Not Pertinent Patient has suicidal ideation: No Patient has homicidal ideation: No Pulmonary Medical History: Reports: Hx Asthma Psychiatric Medical History: Reports: Hx Attention Deficit Hyperactivity Disorder, Hx Schizophrenia, Other - Autism Past Surgical History: Reports: Hx Cholecystectomy - Immunizations Hx Diphtheria, Pertussis, Tetanus Vaccination: Yes <MOIRA VERMA - Last Filed: 10/13/19 01:58> Review of Systems - Review of Systems -: Yes ROS unobtainable due to patient's medical condition <MOIRA VERMA - Last Filed: 10/13/19 01:58> Physical Exam <MOIRA VERMA - Last Filed: 10/13/19 01:58> - Vital signs Vitals: Temp Pulse Resp BP Pulse Ox 98 F 78 18 119/80 100 10/12/19 18:46 10/12/19 18:46 10/12/19 18:46 10/12/19 18:46 10/12/19 18:46 - Notes Notes: GENERAL: Well-developed well-nourished appearing uncomfortable and photophobic. Patient was vomiting into a bucket when I saw him initially. SKIN: Good turgor no rashes. HEAD: Normocephalic atraumatic. EYES: PERRLA. EOMI. Conjunctivae and sclerae clear. EARS: CANALS AND TMS CLEAR. NOSE: CLEAR. MOUTH: Moist mucosa. Good dentition. No stridor or edema. No drooling. NECK: Supple. No masses or thyromegaly. No adenopathy. Carotids 2+ without bruits. No JVD. BACK: Symmetrical without tenderness. CHEST: Respirations unlabored. Breath sounds clear and symmetrical. HEART: Regular rhythm. No murmur gallop or rub. ABDOMEN: Soft nontender without masses, organomegaly or rebound. Bowel sounds normally active. No bruits. GENITALIA: Deferred. EXTREMITIES: No edema. No calf tenderness. Cap refill less than 1.5 seconds. Dorsalis pedis and posterior tibial pulses 3+ and symmetrical. NEUROLOGICAL: GCS 15. Sleepy but oriented x3. Normal gait. Fluent speech. Cranial nerves II through XII intact. Sensorimotor and cerebellar normal. Normal tone. PSYCHIATRIC: Withdrawn and quiet which his mother says is his usual state although he is more sleepy than usual today. (MOIRA VERMA) Course - Laboratory Result Diagrams: 10/12/19 19:30 10/12/19 19:30 <MOIRA VERMA - Last Filed: 10/13/19 01:58> - Laboratory Result Diagrams: 10/12/19 19:30 10/12/19 19:30 <VIDAL CHAND IV - Last Filed: 10/13/19 04:26> - Re-evaluation Re-evalutation: 10/13/19 04:24 All results discussed with patient's mother. Emergency signs and symptoms discussed with patient's mother. (VIDAL CHAND IV) - Vital Signs Vital signs: Temp Pulse Resp BP Pulse Ox 98.1 F 74 21 H 105/60 96 10/13/19 01:30 10/13/19 01:30 10/13/19 01:30 10/13/19 01:30 10/13/19 01:30 Procedures - Lumbar Puncture Lumbar puncture Time completed: 01:55 Consent obtained: Yes Lumbar puncture pre-procedure: Sterile PPE donned, Betadine prep applied, Sterile drapes applied Patient position: Sitting Needle size: 22 Anesthetic type: 1% Lidocaine mL's of anesthetic: 3 Amount/type of drainage: 5 ml Clear CSF Number of attempts: 1 Complications: No <VERMAMOIRA - Last Filed: 10/13/19 01:58> - Lumbar Puncture Lumbar puncture Notes: 10/13/19 02:01 Well tolerated. (MOIRA VERMA) Discharge <OMIRA VERMA - Last Filed: 10/13/19 01:58> <VIDAL CHAND IV - Last Filed: 10/13/19 04:26> - Discharge Clinical Impression: Headache Qualifiers: Headache type: unspecified Headache chronicity pattern: acute headache Intractability: not intractable Qualified Code(s): R51 - Headache Condition: Good Disposition: HOME, SELF-CARE Additional Instructions: Return to the Emergency Department without delay if any worse. HOME CARE INSTRUCTIONS & INFORMATION: Thank you for choosing us for your medical needs. We hope you're satisfied with the care you received. After you leave, you must properly care for your problem and, at the same time, observe its progress. Any condition can change. Some illnesses can change rapidly over hours or days. If your condition worsens, return to the Emergency Department or see your physician promptly. ABOUT YOUR X-RAYS AND EKG'S: If you had an EKG or X-rays taken, they have been read by the Emergency Physician. The X-rays and EKG's will also be read by a Radiologist or Handbag Frames Inspector within 24 hours. If discrepancies are noted, you will be notified by telephone. Please be certain the ED has a correct telephone number & address where you can be reached. Also, realize that some fractures or abnormalities do not show up on initial X-rays. If your symptoms continue, see your physician. ABOUT YOUR LABORATORY TEST: If you had laboratory tests, the results have been reviewed by the Emergency Physician. Some test results (for example cultures) may not be available for several days. You will be contacted if any test result shows you need additional treatment. Please be certain the ED has a correct telephone number and address where you can be reached. ABOUT YOUR MEDICATIONS: You will receive instructions on how to take your medicine on the prescription label you receive. Additional information may be provided by the Pharmacy. If you have questions afterwards, call the ED for clarification or further instructions. Some prescribed medications may cause drowsiness. Do not perform tasks such as driving a car or operating machinery without consulting your Pharmacist. If you feel you need a refill of pain medication, your condition will need re-evaluation. Please do not call for a refill of any medication. ABOUT YOUR SIGNATURE: Signature of this document acknowledges to followin. Understanding that you received emergency treatment and that you may be released before al medical problems are known or treated. Please be certain the ED has a correct phone number & address where you can be reached. 2. Acknowledgement that you will arrange for follow-up care as recommended. 3. Authorization for the Emergency Physician to provide information to your follow-up Physician in order to maximize your care. AT ANY TIME, IF YOUR SYMPTOMS CHANGE SIGNIFICANTLY OR WORSEN OR YOU DEVELOP NEW SYMPTOMS, RETURN TO THE EMERGENCY DEPARTMENT IMMEDIATELY FOR RE-EVALUATION. OUR GOAL IS TO PROVIDE EXCELLENT MEDICAL CARE! WE HOPE THAT WE HAVE MET YOUR EXPECTATIONS DURING YOUR EMERGENCY DEPARTMENT VISIT AND THAT YOU FEEL YOU HAVE RECEIVED EXCELLENT CARE! Referrals: MARION TREVIZO MD [Primary Care Provider] - Follow up as needed
[2019-10-13 03:12] LABS: GLUCOSE,CSF 52 mg/dL (40-70); PROTEIN,CSF 40 mg/dL (12-60)
[2019-10-13 03:42] LABS: APPEARANCE ALL TUBES CLEAR; COLOR ALL TUBES COLORLESS; CSF TUBE NUMBER 1
[2019-10-13 03:43] LABS: RED BLOOD CELL,CSF 0 /uL (0-10)
[2019-10-13 03:44] LABS: CSF TUBE NUMBER 4; WHITE BLOOD CELL,CSF 4 /uL (0-5)
[2019-10-13 03:45] LABS: APPEARANCE ALL TUBES CLEAR; COLOR ALL TUBES COLORLESS
[2019-10-13 03:46] LABS: RED BLOOD CELL,CSF 0 /uL (0-10); WHITE BLOOD CELL,CSF 4 /uL (0-5)
[2019-10-13] MEDS ORDERED: HYDROCODONE/ACETAMINOPHEN 5-325 MG (6 TAB/ER DISP) PO PRN (04:25)
[2019-10-13 04:55] VITALS: BP 103/57
[2019-10-13] MEDS ORDERED: DICYCLOMINE HCL 20 MG TABLET PO SCH (10:00)
[2019-10-13] MEDS ORDERED: RISPERIDONE 1 MG TABLET PO SCH (22:00)
[2019-10-13] MEDS ORDERED: CLONIDINE HCL 0.1 MG TABLET PO SCH (22:00)
[2019-10-13] MEDS ORDERED: BENZTROPINE MESYLATE 1 MG TABLET PO SCH (22:00)
[2019-10-13] MEDS ORDERED: FAMOTIDINE 20 MG TABLET PO SCH (22:00)
== END 2019-10-13 05:01 | disposition home or self-care (01) ==
LOC: ER 17:54
DX: R51 Headache (principal); R53.1 Weakness; R53.83 Other fatigue; Z90.49 Acquired absence of other specified parts of digestive tract
CPT/HCPCS: 36415; 87070; 87205; 82962; 85025; 89050; 82945; 84157; 80053; 81001; 87804; 70450; 62270; J3490 ×2; J1200; J1885; J0696; J2405; J7030

== ENCOUNTER 2020-01-23 20:18 | Emergency (ER) | payer SELFPAY ==
--- NOTE | 2020-01-23 21:27 | ER Document Report ---
ED Psych Disorder / Suicide - General Mode of Arrival: Ambulatory Information source: Patient, Parent TRAVEL OUTSIDE OF THE [place] IN LAST 30 DAYS: No - HPI Patient complains to provider of: Suicidal ideation Onset: Other - 2 days Quality of pain: No pain Severity: Moderate Pain Level: 3 Suicide Risk Factors: Schizophrenia, Other mental health dx. Normal mood: Yes Associated symptoms: Normal affect, Normal mood, Auditory hallucinations. No: Aggressive, Anxious, Confused, Decreased appetite, Flat affect, Psychomotor agitation, Psychomotor depression, Restlessness, Tearful Similar symptoms previously: No Recently seen / treated by doctor: Yes <MARION RICHARDSON - Last Filed: 01/24/20 00:49> <GAMAL MORTON - Last Filed: 01/24/20 02:57> <REYNA JIMENEZ - Last Filed: 01/24/20 19:04> <WILLIAM GARCIA - Last Filed: 01/24/20 19:29> - General Chief Complaint: Psych Problem Stated Complaint: PSYC PROBLEM Time Seen by Provider: 01/23/20 21:13 Primary Care Provider: Rei Mcnulty MD [Provider Group] - 02/14/20 [facility] [Outside] - Follow up as needed [facility] [Outside] - Follow up as needed MARION TREVIZO MD [Primary Care Provider] - Follow up as needed Notes: Patient is a 29-year-old male comes emergency room accompanied by his mother with a plate of having a psych history. Patient has a Asperger's diagnosis along with schizophrenia. Patient is normally well controlled on his medications but he does go see [place] rei. He is recently been admitted to inpatient at [facility]. As stated patient he normally is controlled well on his medications however over the past 2 days he has had increasing suici carmen ideation or thoughts. He has had the voices which he hears on a normal basis become more prominent and telling him for the first time in a while to harm himself by either drowning himself or overdosing on medications. Mother states patient has not been violent but it has been a concern of hers that he is never worried about harming himself in the past. Patient is willing to be evaluated by mental health here tonight or first thing in the morning. (MARION RICHARDSON) - Related Data Allergies/Adverse Reactions: lorazepam [From Ativan] Allergy (Verified 01/23/20 21:01) steroids Allergy (Uncoded 01/23/20 21:01) Past Medical History - General Information source: Patient, Parent - Social History Smoking Status: Never Smoker Cigarette use (# per day): No Chew tobacco use (# tins/day): No Smoking Education Provided: No Frequency of alcohol use: None Drug Abuse: None Family History: Reviewed & Not Pertinent - Past Medical History Cardiac Medical History: Reports: None Pulmonary Medical History: Reports: Hx Asthma Psychiatric Medical History: Reports: Hx Attention Deficit Hyperactivity Disorder, Hx Schizophrenia Past Surgical History: Reports: Hx Cholecystectomy - Immunizations Hx Diphtheria, Pertussis, Tetanus Vaccination: Yes <MARION RICHARDSON - Last Filed: 01/24/20 00:49> Review of Systems - Review of Systems Constitutional: No symptoms reported EENT: No symptoms reported Cardiovascular: No symptoms reported Respiratory: No symptoms reported Gastrointestinal: No symptoms reported Genitourinary: No symptoms reported Male Genitourinary: No symptoms reported Musculoskeletal: No symptoms reported Skin: No symptoms reported Hematologic/Lymphatic: No symptoms reported Neurological/Psychological: No symptoms reported, Suicidal ideation -: Yes All other systems reviewed and negative <MARION RICHARDSON - Last Filed: 01/24/20 00:49> Physical Exam - Vital signs Interpretation: Hypertensive <MARION RICHARDSON Last Filed: 01/24/20 00:49> - Vital signs Vitals: Temp Pulse Resp BP Pulse Ox 98.5 F 88 14 131/80 H 98 01/23/20 20:25 01/23/20 20:25 01/23/20 20:25 01/23/20 20:25 01/23/20 20:25 - Notes Notes: PHYSICAL EXAMINATION: GENERAL: Well-appearing, well-nourished and in no acute distress. HEAD: Atraumatic, normocephalic. EYES: Pupils equal round and reactive to light, extraocular movements intact, sclera anicteric, conjunctiva are normal. ENT: Nares patent, oropharynx clear without exudates. Moist mucous membranes. NECK: Normal range of motion, supple without lymphadenopathy LUNGS: Breath sounds clear to auscultation bilaterally and equal. No wheezes rales or rhonchi. HEART: Regular rate and rhythm without murmurs ABDOMEN: Soft, nontender, nondistended abdomen. No guarding, no rebound. No masses appreciated. Musculoskeletal: Normal range of motion, no pitting or edema. No cyanosis. NEUROLOGICAL: Normal speech, normal gait. Normal sensory, motor exams PSYCH: Normal mood, normal affect per mother patient has not changed his mood or affect. But has voiced increase association of hallucinations of voices and hearing voices. SKIN: Warm, Dry, normal turgor, no rashes or lesions noted. (MARION RICHARDSON) Course - Laboratory Result Diagrams: 01/23/20 21:05 01/23/20 21:05 <MARION RICHARDSON - Last Filed: 01/24/20 00:49> - Laboratory Result Diagrams: 01/23/20 21:05 01/23/20 21:05 <GAMAL MORTON - Last Filed: 01/24/20 02:57> - Laboratory Result Diagrams: 01/23/20 21:05 01/23/20 21:05 <REYNA JIMENEZ - Last Filed: 01/24/20 19:04> - Laboratory Result Diagrams: 01/23/20 21:05 01/23/20 21:05 <WILLIAM GARCIA - Last Filed: 01/24/20 19:29> - Re-evaluation Re-evalutation: 01/24/20 01:27 Patient sleeping, spoke with staff who states that patient has not had any issues. We will continue to monitor. (GAMAL MORTON) 01/24/20 19:27 Vital signs stable patient shows no distress at this time patient is not suicidal at this time and is medically cleared to be discharged home his family member is on her way to pick him up his mother. Patient is going to continue follow-up with [facility]. (WILLIAM GARCIA) - Vital Signs Vital signs: Temp Pulse Resp BP Pulse Ox 98.3 F 81 16 128/74 H 100 01/24/20 06:32 01/24/20 06:32 01/24/20 06:32 01/24/20 06:32 01/24/20 06:32 01/24/20 19:28 Vital signs are stable. (WILLIAM GARCIA) - Laboratory Laboratory results interpreted by me: 01/23/20 01/23/20 21:05 21:05 RDW 14.6 H Glucose 112 H Salicylates < 1.0 L Acetaminophen < 10 L - Diagnostic Test Radiology results interpreted by me: 01/24/20 19:28 Twelve-lead EKG does not show any acute process. Patient has a stable ST elevation no change from prior EKG. (WILLIAM GARCIA) Discharge <MARION RICHARDSON - Last Filed: 01/24/20 00:49> <GAMAL MORTON - Last Filed: 01/24/20 02:57> <REYNA JIMENEZ - Last Filed: 01/24/20 19:04> <WILLIAM GARCIA - Last Filed: 01/24/20 19:29> - Discharge Clinical Impression: Suicide ideation, Depression, Hallucination Condition: Stable Disposition: HOME, SELF-CARE Additional Instructions: You have been evaluated by both medical and behavioral health teams for increased depression, suicidal ideation and hallucinations. You have been deemed appropriate for discharge. While in the emergency department you received the following services: Medical screening and assessment, nursing services, dietary services, pharmacological services, one-on-one counseling and/or psychotherapy, environmental services, and continuous observation by a patient safety technician. Continue your home medication regimen. You should never abruptly stop any medication and should be followed by a physician. You are recommended to follow through with medication management and therapy from [facility]. DEPRESSION: (this has been common due to COVID stay at home order) Your evaluation reveals that you have mental depression. While symptoms may be vague, they often include disturbance of sleep, fatigue, loss of appetite, and general loss of interest in life. While depression may be a side effect of drugs, or a reaction to a major change in your life, many cases have no known cause. If depression is acute, and related to a major loss in your life, you can expect it to clear completely with time. If you have been depressed a long time, are prone to repeated bouts of depression or low mood, or have been thinking of suicide, get help. Depression can be treated with anti-depressant medication and counselling. Long-term depression will often take a few weeks to clear, even with appropriate medication. Follow-up care is important. SUICIDAL IDEATION: (with increased depression often times suicidal ideation is a component, however yours seems to be related to hallucinations) Suicidal ideation is a common medical term for thoughts about suicide, which may be as detailed as a formulated plan, without the suicidal act itself. Although most people who undergo suicidal ideation do not commit suicide, some go on to make suicide attempts. The range of suicidal ideation varies greatly from fleeting to detailed planning, role playing, and unsuccessful attempts. While thoughts about suicide are common, most people do not carry out serious actions to commit suicide. Based upon your evaluation and discussion with you, we do not believe you are currently at risk to act upon your thoughts of suicide. You have agreed to return to the Emergency Department, at any time, if you feel inclined to act upon your suicidal thoughts. Hallucinations You seem to be having hallucinations. Hallucinations are seeing, hearing, or feeling things that don't exist. These symptoms commonly occur with drug abuse and schizophrenia. Drugs like PCP, LSD, MDMA, peyote, and "psychedelic mushrooms" can cause frightening hallucinations. Users of methamphetamine or crack cocaine often see and feel bugs crawling on their skin. Patients with schizophrenia may hear voices that no one else can hear. The delusions of schizophrenia often involve conspiracies or relationships that are not real. When symptoms are due to drug abuse, the mental state usually improves as the drug wears off. Someone you trust should be with you until you are better, to protect you and calm your fears. Tranquilizer medicine is helpful at controlling hallucinations, anxiety, and deluded thoughts. Get a proper diet and enough sleep. Most patients do very well when they get proper medical treatment and social support. You should return at once if your symptoms get worse, if you are having suicidal thoughts or thoughts about hurting others, or if you feel that you are in danger. FOLLOW-UP CARE: You are recommended to continue with medication management and therapy at [facility]. You should try to get a sooner appointment for medication management than the already scheduled 02/14/2020 and if unable to get anything sooner make sure you make this appointment. [facility] has psychosocial rehabilitation that may be a good treatment modality. You have also been provide mobile crisis numbers for crisis/talk therapy/linkage to other services and supports. If you experience worsening or a significant change in your symptoms notify your physician immediately, return to the Emergency Department at any time for re- evaluation, or utilize mobile crisis. Referrals: MARION TREVIZO MD [Primary Care Provider] - Follow up as needed [facility] [Outside] - Follow up as needed [facility] [Outside] - Follow up as needed [facility] [Provider Group] - 02/14/20
[2020-01-23 21:49] LABS: ABSOLUTE BASOPHILS # (AUTO) 0.1 10^3/uL (0.0-0.2); ABSOLUTE EOSINOPHILS # (AUTO) 0.1 10^3/uL (0.0-0.6); ABSOLUTE LYMPHOCYTES (AUTO) 2.3 10^3/uL (0.5-4.7); ABSOLUTE MONOCYTES (AUTO) 0.5 10^3/uL (0.1-1.4); ABSOLUTE NEUT (AUTO) 5.2 10^3/uL (1.7-8.2); BASOPHILS % (AUTO) 0.7 % (0-2); EOSINOPHILS % (AUTO) 1.3 % (0-6); HEMATOCRIT 43.9 % (37.9-51.0); LYMPHOCYTES % (AUTO) 28.1 % (13-45); MEAN CORPUSCULAR HEMOGLOBIN 28.4 pg (27.0-33.4); MEAN CORPUSCULAR HGB CONC 34.3 g/dL (32.0-36.0); MEAN CORPUSCULAR VOLUME 83 fl (80-97); MONOCYTES % (AUTO) 6.5 % (3-13); PLATELET COUNT 219 10^3/uL (150-450); RED BLOOD COUNT 5.31 10^6/uL (4.35-5.55); RED CELL DISTRIBUTION WIDTH 14.6 % (11.5-14.0); SEGMENTED NEUTROPHILS % (AUTO) 63.4 % (42-78); TOTAL CELLS COUNTED % (AUTO) 100 %; WHITE BLOOD COUNT 8.2 10^3/uL (4.0-10.5)
[2020-01-23 22:00] LABS: APPEARANCE,URINE CLEAR; BILIRUBIN,URINE NEGATIVE (NEGATIVE); COLOR,URINE YELLOW; GLUCOSE, URINE NEGATIVE (NEGATIVE); KETONES,URINE NEGATIVE (NEGATIVE); LEUKOCYTE ESTERASE,URINE NEGATIVE (NEGATIVE); NITRITE,URINE NEGATIVE (NEGATIVE); PROTEIN,URINE NEGATIVE (NEGATIVE); UROBILINOGEN,URINE NEGATIVE mg/dL (<2.0)
[2020-01-23 22:06] LABS: ALBUMIN 4.5 g/dL (3.5-5.0); ALKALINE PHOSPHATASE 65 U/L (38-126); ANION GAP 10 (5-19); ASPARTATE AMINO TRANSFERASE 25 U/L (17-59); BLOOD UREA NITROGEN 15 mg/dL (7-20); CALCIUM 9.7 mg/dL (8.4-10.2); CARBON DIOXIDE 25 mmol/L (22-30); CHLORIDE 104 mmol/L (98-107); GLUCOSE 112 mg/dL (75-110); POTASSIUM 4.1 mmol/L (3.6-5.0); TOTAL PROTEIN 7.4 g/dL (6.3-8.2)
[2020-01-23 22:07] LABS: ACETAMINOPHEN < 10 ug/mL (10-30); ALCOHOL < 10 mg/dL (NONE DETECTED); SALICYLATE < 1.0 mg/dL (2.0-20.0)
[2020-01-23 22:10] LABS: URINE AMPHETAMINES SCREEN NEGATIVE; URINE BARBITURATES SCREEN NEGATIVE; URINE BENZODIAZEPINES SCREEN NEGATIVE; URINE COCAINE SCREEN NEGATIVE; URINE MARIJUANA (THC) SCREEN NEGATIVE; URINE METHADONE SCREEN NEGATIVE; URINE PHENCYCLIDINE SCREEN NEGATIVE
--- NOTE | 2020-01-24 07:13 | EKG REPORT ---
SEVERITY:- OTHERWISE NORMAL ECG - SINUS RHYTHM ST ELEVATION UNCHANGED FROM 05/18/12 EKG, LIKELY NORMAL VARAINT EARLY PRECORDIAL TRANSITION TO V2, LIKELY POOR LEAD PLACEMENT. : Confirmed by: Nathaniel Feliciano MD 24-Jan-2020 07:12:54
[2020-01-24] MEDS ORDERED: RISPERIDONE 1 MG TABLET PO ONE (18:02)
[2020-01-24 20:11] VITALS: BP 130/74
--- NOTE | 2020-01-25 08:22 | PSYCHOLOGICAL NOTE ---
Psych Note - Psych Note Date seen by psych provider: 01/24/20 Time seen by psych provider: 13:16 - [id number] evaluation with patient. [phone] mother collateral. Psych Note: Presenting Problem: Patient is a 29 year old male who [facility] via POV (mother) for history of Schizophrenia and Asperger's, being compliant with medications (Risperdal, Cogentin, Clonidine), has had trouble sleeping the past few nights, been feeling depressed, having A/V hallucinations of multiple unfamiliar voices telling him to self harm (take pills or jump in pond by his house), and usually the medications and verbal reassurance help with the A/V hallucinations but not last night. Patient identified he's been feeling depressed and having hallucinations "for awhile now." He denied hearing or seeing anything during the evaluation. He stated "the voices tell me to do things but I don't." He denied current SI/HI. He stated he was going to [facility] for therapy and medications but his therapist left so he has to get a new one. He identified his PCM is Dr. Orlando Yancey in [place]. Patient reported he takes his medication as prescribed. He stated the last time he had a medication appointment it was "over the computer." He presented pleasant. He was calm and cooperative. Patient was interacting appropriately with medical staff. He reported he ate all of his lunch and described what he had "turkey and gravy, orange sherbert, vegetables, Zucchini pure" and was finishing his Ice Tea. Patient was alert and oriented to self, person, place, time and situation. Mood was euthymic with congruent affect. He denied current SI/HI, admitted to having command auditory hallucinations that tell him to harm self but he doesn't. Patient did not appear to be responding to internal stimuli as evidenced by fair eye contact and answering questions appropriately when addressed. He also denied experiencing any hallucinations today in the ED. Thought processes were linear. Conversational speech was within normal limits for rate, tone and prosody. Intel lectual abilities are estimated to be average. Insight, judgment and impulse control were fair as evidenced by being engaged and having appropriate interactions with staff. Collateral: From [id number] obtained collateral from patient's mother Gena Whitt ([phone]). She identified patient has been wanting to sleep all the time, depressed and yesterday came to her crying about voices telling him to hurt himself. Mother stated he did not do anything to hurt himself. Mother acknowledged patient is a twin and they have been stuck in the house since the COVID shut down. She commented how there were 2 full weeks where patient didn't even get to get out of the house to go on a drive because the family has had car issues. Mother reported patient's outpatient provider used to be [facility] but now is [facility] in [place] for medication (next appointment 02/14/2020) and they have done a CCA and requested therapy. Mother provided the following psychiatric medications: Risperdal 3MG QAM and 6MG QHS, Cogentin 1MG QHS and Clonidine 0.6MG QHS. She stated he has not had any medication changes for at least the past year. Mother identified he has been on a lot of different medications. She stated he is allergic to Ativan and Steroids. Mother reported family history: herself Bipolar and patient's father ADD. Diagnosis: Increased Depression A/V Hallucination: Command voices telling him to take pills or jump in pond History of Schizophrenia and Asperger's Medication recommendations made by the psychiatric medication provider Dr. Ellie CEBALLOS., includes: Add Risperdal 3MG Once Now (morning home medication that had not been provided yet) Impression/Plan: Patient is cleared from acute psychiatric services. He denied current SI/HI, no observed psychosis based on the fact he had fair eye contact and was able to answer questions appropriately when addressed/carry on dialogue conversation. He also denied experiencing any hallucinations today while in the ED. He admitted when he hears the voices they tell him to harm self but he never does. Mother stated patient came to her about the voices so he informed someone. He has been home without much interaction other than family due to COVID. Patient to move forward with treatment from [facility] for medication management (02/14/2020 per mother, encouraged to try for sooner appointment which may not be possible) and therapy. Included mother in plan of care. She provided transportation home. She was made aware no medication changes since for the most part it has been effective and patient's increased depression may stem from the COVID shut down. Discussed finding other ways to keep patient active and getting outside (doing activities in the home the patient enjoys, using things like search and finds to stimulate the mind, going for walks to get outside/fresh air). Provided patient and mother with the outpatient mental health resource sheet which highlighted both MCM numbers and documented next appointment (per mother) at [facility] [place]. Consulted with Dr. Fine regarding the management and care of patient. ED Physician in agreement with recommendations.
== END 2020-01-24 20:08 | disposition home or self-care (01) ==
LOC: ER 20:18
DX: R45.851 Suicidal ideations (principal); F32.9 Major depressive disorder, single episode, unspecified; F20.9 Schizophrenia, unspecified; F84.5 Asperger's syndrome; Z79.899 Other long term (current) drug therapy; J45.909 Unspecified asthma, uncomplicated; Z88.8 Allergy status to other drugs, medicaments and biological substances
CPT/HCPCS: 36415; 80053; 80307; 81001; 85025; 93005; 93010; 99284

== ENCOUNTER 2020-06-15 14:03 | Emergency (ER) | payer SELFPAY ==
[2020-06-15] MEDS ORDERED: KETOROLAC TROMETHAMINE INJ/PF 30 MG/1 ML SDV IV ONE (14:23)
[2020-06-15] MEDS ORDERED: DIPHENHYDRAMINE HCL 50 MG/ML VIAL IV ONE (14:23)
[2020-06-15] MEDS ORDERED: NORMAL SALINE 1000 ML 1,000 ML IV ONE (14:23)
[2020-06-15] MEDS ORDERED: PROCHLORPERAZINE EDISYLATE INJ 10 MG/2 ML VIAL IV ONE (14:23)
--- NOTE | 2020-06-15 14:31 | ER Document Report ---
ED Headache - General Chief Complaint: Headache Stated Complaint: HEADACHE Time Seen by Provider: 06/15/20 14:16 Primary Care Provider: MARION YANCEY MD [NO LOCAL MD] - Follow up in 3-5 days Mode of Arrival: Ambulatory Information source: Patient Notes: 30-year-old male presented to ED for complaint of migraine x3 days. He states he gets this frequently from his medical history of Arnold-Chiari malformation. He states he was on Maxalt for them but has run out and so now he has not been taking them with Tylenol. He states he also has Asperger's schizophrenia asthma and ADHD. He has had his gallbladder removed. Mother states they will call the primary care Dr. Yancey tomorrow and schedule follow-up appointment to get him back on his Maxalt. Constitutional: Negative for fever. HENT: Negative for sore throat. Eyes: Negative for visual changes. Cardiovascular: Negative for chest pain. Respiratory: Negative for shortness of breath. Gastrointestinal: Negative for abdominal pain, vomiting or diarrhea. Genitourinary: Negative for dysuria. Musculoskeletal: Negative for back pain. Skin: Negative for rash. Neurological: Negative for headaches, weakness or numbness. 10 point ROS negative except as marked above and in HPI. VITAL SIGNS: Within normal limits. GENERAL: No acute distress, non-toxic appearance. HEAD: Normal with no signs of head trauma. EYES: PERRLA, EOMI, conjunctiva normal, no discharge. EARS: Hearing grossly intact. NOSE: Normal. THROAT: Oropharynx is normal. NECK: Normal range of motion, no tenderness, supple, no lymphadenopathy, No adenopathy, no JVD. CHEST: Clear breath sounds bilaterally. No wheezes, rales, or rhonchi. CARDIAC: Regular rate and rhythm. S1 and S2, without murmurs, gallops, or rubs. VASCULAR: No Edema. Peripheral pulses normal and equal in all extremities. ABDOMEN: Normal and soft with no tenderness, no masses or pulsatile masses. GASTROINTESTINAL: Bowel sounds normal GENITOURINARY: Normal, No tenderness LYMPATHTIC: No lymphadenopathy noted. MUSCULOSKELETAL: Good range of motion of all major joints. Extremities without clubbing, cyanosis or edema. NEUROLOGICAL: Alert and oriented x 3. No focal sensory or strength deficits. Speech normal. Follows commands appropriately. PSYCHIATRIC: Normal Affect, judgement and mood. SKIN: Normal appearance with no rashes or lesions. TRAVEL OUTSIDE OF THE [place] IN LAST 30 DAYS: No - HPI Patient complains to provider of: Headache, "Migraine" Patient reports: Hx chronic headaches Onset: Other - 3 days Timing: Still present Quality of pain: Achy Severity: Moderate Pain Level: 4 Associated symptoms: Nausea/vomiting - No vomiting, Other - Mother states he is acting his normal self he just has an old carry malformation and is been using Maxalt which is helped his migraine she is been out of it for a while and needs to get a refill Exacerbated by: Position Similar symptoms previously: Yes Recently seen / treated by doctor: Yes - Related Data Allergies/Adverse Reactions: lorazepam [From Ativan] Allergy (Verified 06/15/20 14:12) steroids Allergy (Uncoded 01/23/20 21:01) Home Medications: respridol, clonadine, cogentin, omeprazole, albuterol Past Medical History - General Information source: Patient - Social History Smoking Status: Never Smoker Chew tobacco use (# tins/day): No Frequency of alcohol use: None Drug Abuse: None Lives with: Family Family History: Reviewed & Not Pertinent Patient has suicidal ideation: No Patient has homicidal ideation: No - Past Medical History Cardiac Medical History: Reports: None Pulmonary Medical History: Reports: Hx Asthma EENT Medical History: Reports: None Neurological Medical History: Reports: None Endocrine Medical History: Reports: None Renal/ Medical History: Reports: None Malignancy Medical History: Reports None GI Medical History: Reports: None Musculoskeletal Medical History: Reports None Skin Medical History: Reports None Psychiatric Medical History: Reports: Hx Attention Deficit Hyperactivity Disorder, Hx Schizophrenia, Other - Asperger's, Arnold-Chiari malformation Traumatic Medical History: Reports: None Infectious Medical History: Reports: None Past Surgical History: Reports: Hx Cholecystectomy - Immunizations Hx Diphtheria, Pertussis, Tetanus Vaccination: Yes Physical Exam - Vital signs Vitals: Temp Pulse Resp BP Pulse Ox 98.3 F 103 H 16 140/82 H 99 06/15/20 14:10 06/15/20 14:10 06/15/20 14:10 06/15/20 14:10 06/15/20 14:10 Course - Re-evaluation Re-evalutation: 06/15/20 17:22 Patient states he has had treatment for this headache with the same treatment before and it worked in the past. We did give the treatment he states his headache went down to almost nothing. He was discharged home with instructions to please follow-up with his primary care doctor tomorrow. Patient was discharged home. - Vital Signs Vital signs: Temp Pulse Resp BP Pulse Ox 98.2 F 70 18 128/80 H 99 06/15/20 15:48 06/15/20 15:48 06/15/20 15:48 06/15/20 15:48 06/15/20 15:48 Discharge - Discharge Clinical Impression: Headache Qualifiers: Headache type: other headache syndrome Qualified Code(s): G44.89 - Other headache syndrome Condition: Stable Disposition: HOME, SELF-CARE Additional Instructions: HEADACHE: The physician does not feel that the headache you are experiencing has a serious underlying cause. Most headaches are due to emotional stress, with resultant muscle tension (tension headache). Occasionally, headaches are secondary to changes in the blood vessels of the scalp (vascular headache and migraine headache). Sometimes, a headache is the first symptom of another developing illness, such as a viral infection. You have no evidence of stroke, bleeding, meningitis, or other serious cause of your headache. The treatment of headaches varies with the severity and cause of the pain. Not all headaches need pain shots. In fact, there is evidence that using narcotics for headaches may make them worse in the long run. The physician will determine the therapy that's in your best interest. If you develop a fever, if the headache is different from any you've previously experienced, or if the headache progressively worsens, then call your physician at once or go to the emergency room. USE OF DIPHENHYDRAMINE: Diphenhydramine (Benadryl) is an antihistamine and has been recommended to help treat your headache and to prevent side effects of other medications used to treat headaches. The medication can be repeated four times daily. Age Elixir (12.5 mg/tsp) 25 mg pill adult 1-2 tabs Antihistamines may cause drowsiness, especially with the first dose. Do not operate machinery or drive while under the effects of the medication. Do not combine the medication with alcohol, or with any other medication without talking to your doctor. INTRAVENOUS COMPAZINE FOR HEADACHE: You have received therapy for headaches, using intravenous Compazine. This treatment is dramatically successful in relieving the headache in about 50 percent of cases. When it works, it provides a rapid method of eliminating the headache without resorting to narcotics (and the problems associated with them). Most patients still feel fully alert after the Compazine, but others may be slightly drowsy. It's best not to drive or work with machinery for six to eight hours. Do not take alcohol or other medication unless you discuss it with the doctor. If you develop tightness and spasms in your muscles, especially the neck and tongue, you should return. This is a side effect which can be treated. TORADOL INJECTION: You have been given an injection of ketorolac tromethamine (Toradol). This is an excellent, safe drug for pain control. It also has potent antiinflammatory action. You should have significant pain relief within about one hour. Toradol is not addicting and is non-sedating. It does not interfere with driving or work. Call or return if you develop itching, hives, shortness of breath, or rash. Intravenous (IV) Fluids As part of your care today, you received intravenous (IV) fluids. IV fluids are administered to patients who are dehydrated or to those who have certain chemical (electrolyte) abnormalities that need correcting. FOLLOW-UP CARE: If you have been referred to a physician for follow-up care, call the physicians office for an appointment as you were instructed or within the next two days. If you experience worsening or a significant change in your symptoms, notify the physician immediately or return to the Emergency Department at any time for re-evaluation. Forms: Elevated Blood Pressure Referrals: MARION YANCEY MD [NO LOCAL MD] - Follow up in 3-5 days
[2020-06-15 15:49] VITALS: BP 128/80
== END 2020-06-15 15:48 | disposition home or self-care (01) ==
LOC: ER 14:03
DX: G44.89 Other headache syndrome (principal)
CPT/HCPCS: 99284; 96361; 96374; 96375; J1200; J1885; J0780; J7030

== ENCOUNTER 2020-07-05 23:27 | Emergency (ER) | payer SELFPAY ==
[2020-07-05 23:39] VITALS: BP 124/75
[2020-07-06] MEDS ORDERED: ROPINIROLE HCL 1 MG TABLET PO ONE (00:07)
--- NOTE | 2020-07-06 00:13 | ER Document Report ---
ED General - General Chief Complaint: Anxiety Stated Complaint: POSS ANXIETY Time Seen by Provider: 07/06/20 00:07 Mode of Arrival: Ambulatory Information source: Patient Notes: 30-year-old male coming in today with mom chief complaint of restless leg syndrome. Takes Requip. This normally helps him to sleep because it backs of his legs. Unfortunately his refills had run out and he is having difficulty falling asleep tonight. TRAVEL OUTSIDE OF THE [place] IN LAST 30 DAYS: No - Related Data Allergies/Adverse Reactions: lorazepam [From Ativan] Allergy (Verified 06/15/20 14:12) steroids Allergy (Uncoded 01/23/20 21:01) Past Medical History - Social History Smoking Status: Unknown if Ever Smoked Family History: Reviewed & Not Pertinent Pulmonary Medical History: Reports: Hx Asthma Psychiatric Medical History: Reports: Hx Attention Deficit Hyperactivity Disorder, Hx Schizophrenia Past Surgical History: Reports: Hx Cholecystectomy - Immunizations Hx Diphtheria, Pertussis, Tetanus Vaccination: Yes Review of Systems - Review of Systems Notes: Constitutional: No fevers. No chills. EENT: No eye redness. No eye pain. No ear pain. No sore throat. Cardiovascular: No chest pain. No palpitations. Respiratory: No cough. No shortness of breath. No respiratory distress. Gastrointestinal: No abdominal pain. No nausea, vomiting, or diarrhea. Genitourinary: Atraumatic. No lesions. No pain. No discharge. Musculoskeletal: Atraumatic. No swelling. No deformities. + restless legs Skin: No rash or lesions. Lymphatic: No swollen lymph nodes. Neurologic: No headache. No syncope. Physical Exam - Vital signs Vitals: Temp Pulse Resp BP Pulse Ox 98.4 F 63 16 124/75 98 07/05/20 23:38 07/05/20 23:38 07/05/20 23:38 07/05/20 23:38 07/05/20 23:38 - Notes Notes: General: Well-developed, well-nourished. In no acute distress. Non-toxic appearing. Cardiac: Well-perfused. Regular rate and rhythm. No murmurs, rubs, or gallops. Pulmonary: No respiratory distress. No cyanosis. Bilateral lung fiels are clear to auscultation. Abdominal: Non-distended. Non-rigid. Bowels sounds are present in all four quadrants. No guarding or rebound. HEENT: Head is atraumatic. Conjunctivae not reddened. No tearing. PERRL. EOMI. Orbits atraumatic. No periorbital swelling or erythema. Oropharynx is without e rythema, swelling, or exudates. Neck: Supple. No adenopathy. No meningismus. Dermatologic: Warm with good turgor. No rash. Atraumatic. Chest: Atraumatic. No chest wall tenderness to palpation. Musculoskeletal: Moves all extremities well. No range of motion deficits. no muscular or joint tenderness. No paraspinal muscle tenderness. no midline spinal tenderness or step-off. Genitourinary: Examination deferred Neurologic: No gross neurologic deficits. Psychiatric: Normal mood. Course - Vital Signs Vital signs: Temp Pulse Resp BP Pulse Ox 98.4 F 63 16 124/75 98 07/05/20 23:38 07/05/20 23:38 07/05/20 23:38 07/05/20 23:38 07/05/20 23:38 Discharge - Discharge Clinical Impression: Restless leg syndrome Condition: Good Disposition: HOME, SELF-CARE Instructions: Anxiety ([facility]) Prescriptions: Ropinirole HCl [Requip 2 Mg Tablet] 2 mg PO QHS #5 tablet
[2020-07-06] MEDS ORDERED: ROPINIROLE HCL 2 MG TABLET ONE (00:23)
== END 2020-07-06 00:50 | disposition home or self-care (01) ==
LOC: ER 23:27
DX: G25.81 Restless legs syndrome (principal); F41.9 Anxiety disorder, unspecified; Z79.899 Other long term (current) drug therapy; J45.909 Unspecified asthma, uncomplicated
CPT/HCPCS: 99283

== ENCOUNTER 2020-07-10 21:39 | Emergency (ER) | payer SELFPAY ==
[2020-07-10 21:55] VITALS: BP 142/89
== END 2020-07-10 22:29 | disposition left against medical advice (07) ==
LOC: ER 21:39
DX: Z53.21 Procedure and treatment not carried out due to patient leaving prior to being seen by health care provider (principal)

== ENCOUNTER 2020-07-14 20:29 | Emergency (ER) | payer SELFPAY ==
[2020-07-14 20:54] VITALS: BP 122/94
[2020-07-14] MEDS ORDERED: PROMETHAZINE HCL 25 MG TABLET PO ONE (21:00)
--- NOTE | 2020-07-14 21:00 | ER Document Report ---
ED Medical Screen (RME) - General Chief Complaint: Vomiting Stated Complaint: VOMITING Time Seen by Provider: 07/14/20 20:55 Primary Care Provider: MARION TREVIZO MD [Primary Care Provider] - Follow up as needed Mode of Arrival: Wheelchair Information source: Patient Notes: 30-year-old male presented to ED for nausea vomiting. He does have celiac's disease. He ate a biscuit about 6 PM. Mom states he started vomiting about 7:00. She states sometimes he can eat a biscuit with no problems and other times he cannot. Mother states the only other symptom he is having is his restless leg syndrome is worse. Mother states he took his Requip but it will not calm down. Mother states he is supposed to take Phenergan but he is out of it at this time. She states that he usually takes Phenergan by mouth but she is not sure how good it will stay down right now. He states he Asperger's, restless leg syndrome, and celiac, ADHD Arnold-Chiari malformation asthma. Give 1 Phenergan in by mouth at this time. I have greeted and performed a rapid initial assessment of this patient. A comprehensive ED assessment and evaluation of the patient, analysis of test results and completion of medical decision making process will be conducted by an additional ED providers. TRAVEL OUTSIDE OF THE [place] IN LAST 30 DAYS: No - Related Data Allergies/Adverse Reactions: lorazepam [From Ativan] Allergy (Verified 06/15/20 14:12) steroids Allergy (Uncoded 01/23/20 21:01) Past Medical History Pulmonary Medical History: Reports: Hx Asthma Psychiatric Medical History: Reports: Hx Attention Deficit Hyperactivity Disorder, Hx Schizophrenia Past Surgical History: Reports: Hx Cholecystectomy - Immunizations Hx Diphtheria, Pertussis, Tetanus Vaccination: Yes Physical Exam - Vital signs Vitals: Temp Pulse Resp BP Pulse Ox 97.5 F 86 18 122/94 H 100 07/14/20 20:53 07/14/20 20:53 07/14/20 20:53 07/14/20 20:53 07/14/20 20:53 Course - Vital Signs Vital signs: Temp Pulse Resp BP Pulse Ox 97.5 F 86 18 122/94 H 100 07/14/20 20:53 07/14/20 20:53 07/14/20 20:53 07/14/20 20:53 07/14/20 20:53 Doctor's Discharge - Discharge Referrals: MARION TREVIZO MD [Primary Care Provider] - Follow up as needed
[2020-07-14 22:02] LABS: ABSOLUTE BASOPHILS # (AUTO) 0.1 10^3/uL (0.0-0.2); ABSOLUTE EOSINOPHILS # (AUTO) 0.1 10^3/uL (0.0-0.6); ABSOLUTE LYMPHOCYTES (AUTO) 1.9 10^3/uL (0.5-4.7); ABSOLUTE MONOCYTES (AUTO) 0.7 10^3/uL (0.1-1.4); ABSOLUTE NEUT (AUTO) 8.4 10^3/uL (1.7-8.2); BASOPHILS % (AUTO) 0.9 % (0-2); EOSINOPHILS % (AUTO) 0.8 % (0-6); HEMATOCRIT 42.3 % (37.9-51.0); HEMOGLOBIN 14.8 g/dL (13.5-17.0); LYMPHOCYTES % (AUTO) 17.4 % (13-45); MEAN CORPUSCULAR HEMOGLOBIN 28.6 pg (27.0-33.4); MEAN CORPUSCULAR HGB CONC 34.9 g/dL (32.0-36.0); MEAN CORPUSCULAR VOLUME 82 fl (80-97); MONOCYTES % (AUTO) 5.9 % (3-13); PLATELET COUNT 265 10^3/uL (150-450); RED BLOOD COUNT 5.17 10^6/uL (4.35-5.55); RED CELL DISTRIBUTION WIDTH 13.9 % (11.5-14.0); TOTAL CELLS COUNTED % (AUTO) 100 %; WHITE BLOOD COUNT 11.2 10^3/uL (4.0-10.5)
[2020-07-14 22:16] LABS: ALBUMIN 4.6 g/dL (3.5-5.0); ALKALINE PHOSPHATASE 68 U/L (38-126); ANION GAP 13 (5-19); ASPARTATE AMINO TRANSFERASE 24 U/L (17-59); BILIRUBIN,TOTAL 1.8 mg/dL (0.2-1.3); BLOOD UREA NITROGEN 13 mg/dL (7-20); CALCIUM 9.9 mg/dL (8.4-10.2); CARBON DIOXIDE 25 mmol/L (22-30); CHLORIDE 101 mmol/L (98-107); GLUCOSE 106 mg/dL (75-110); POTASSIUM 3.7 mmol/L (3.6-5.0); TOTAL PROTEIN 7.5 g/dL (6.3-8.2)
[2020-07-14 23:59] LABS: APPEARANCE,URINE TURBID; BILIRUBIN,URINE SMALL (NEGATIVE); COLOR,URINE YELLOW; GLUCOSE, URINE NEGATIVE (NEGATIVE); KETONES,URINE NEGATIVE (NEGATIVE); LEUKOCYTE ESTERASE,URINE NEGATIVE (NEGATIVE); NITRITE,URINE NEGATIVE (NEGATIVE); PROTEIN,URINE 30 mg/dL (NEGATIVE); URINE SPECIFIC GRAVITY 1.033; UROBILINOGEN,URINE NEGATIVE mg/dL (<2.0)
== END 2020-07-14 22:08 | disposition left against medical advice (07) ==
LOC: ER 20:29
DX: R11.2 Nausea with vomiting, unspecified (principal); Z90.49 Acquired absence of other specified parts of digestive tract
CPT/HCPCS: 36415; 80053; 81001; 83690; 85025; 99281

== ENCOUNTER 2020-07-17 22:05 | Emergency (ER) | payer SELFPAY ==
--- NOTE | 2020-07-18 00:57 | ER Document Report ---
ED General - General Chief Complaint: Psych Problem Stated Complaint: POSSIBLE PANIC ATTACK Time Seen by Provider: 07/18/20 00:05 Primary Care Provider: MARION TREVIZO MD [Primary Care Provider] - Follow up as needed TRAVEL OUTSIDE OF THE [place] IN LAST 30 DAYS: No - HPI Notes: Patient is a 30-year-old male with a past medical history of schizophrenia and Arnold-Chiari malformation who presents with a panic attack. Patient states that he gets frequent panic attacks. He states it happened prior to arrival. He describes it as his chest tightening. Patient saw the psychiatry office today and had his medication changed. He was told to stop his propranolol. He was placed on Vistaril and Zoloft. He has not started these medications yet because the pharmacy was closed. He states that he occasionally hears voices that tell him to do things. He is not currently suicidal or homicidal but states he was feeling that way during the panic attack. - Related Data Allergies/Adverse Reactions: lorazepam [From Ativan] Allergy (Verified 06/15/20 14:12) steroids Allergy (Uncoded 01/23/20 21:01) Home Medications: Risperdone 6mg BID, Clonadine .04mg nightly, requip 2mg prn, Albuterol 2 puffs prn, NEW:Zoloft and Visteril-not started. Past Medical History - General Information source: Patient - Social History Smoking Status: Never Smoker Chew tobacco use (# tins/day): No Frequency of alcohol use: None Drug Abuse: None Family History: Reviewed & Not Pertinent Pulmonary Medical History: Reports: Hx Asthma Psychiatric Medical History: Reports: Hx Attention Deficit Hyperactivity Disorder, Hx Schizophrenia Past Surgical History: Reports: Hx Cholecystectomy - Immunizations Hx Diphtheria, Pertussis, Tetanus Vaccination: Yes Review of Systems - Review of Systems Notes: CONSTITUTIONAL: No fever, fatigue or weight loss. SKIN: No rash. HENT: No congestion, ear pain, or sore throat. CARDIOVASCULAR: No chest pain or edema. RESPIRATORY: No cough, shortness of breath, congestion, or wheezing. GASTROINTESTINAL: No abdominal pain, nausea, vomiting, bloody stools or diarrhea. GENITOURINARY: No dysuria. MUSCULOSKELETAL: No joint pain or swelling. NEUROLOGIC: No seizures. No headache, focal weakness or sensory changes. HEMATOLOGIC: No unusual bruising or bleeding. PSYCHIATRIC: No depression. Physical Exam - Vital signs Vitals: Temp Pulse Resp BP Pulse Ox 98.3 F 77 16 127/81 H 98 07/17/20 22:26 07/17/20 22:26 07/17/20 22:26 07/17/20 22:26 07/17/20 22:26 - General General appearance: Appears well Notes: VITAL SIGNS: Within normal limits. GENERAL: No acute distress, non-toxic appearance. HEAD: Normal with no signs of head trauma. EYES: PERRLA, EOMI, conjunctiva normal, no discharge. EARS: Hearing grossly intact. NOSE: Normal. NECK: Normal range of motion, no tenderness, supple, no lymphadenopathy, No adenopathy, no JVD. CHEST: Clear breath sounds bilaterally. No wheezes, rales, or rhonchi. CARDIAC: Regular rate and rhythm. S1 and S2, without murmurs, gallops, or rubs. VASCULAR: No Edema. ABDOMEN: Normal and soft MUSCULOSKELETAL: Good range of motion of all major joints. Extremities without clubbing, cyanosis or edema. NEUROLOGICAL: Alert and oriented x 3. No focal sensory or strength deficits. Speech normal. Follows commands appropriately. PSYCHIATRIC: Normal Affect, judgement and mood. SKIN: Normal appearance with no rashes or lesions. Course - Re-evaluation Re-evalutation: 07/18/20 00:56 Patient is not suicidal or homicidal currently. He is resting comfortably. He states he would like to talk to psychiatry. As patient is not currently suicidal or homicidal, I do not think he needs to be an IVC. Patient states he would like to speak to psychiatry and I have consulted them. Patient is medically cleared. He will be signed out at the end of my shift. to my colleague. 07/18/20 05:55 - Vital Signs Vital signs: Temp Pulse Resp BP Pulse Ox 98.2 F 77 16 127/81 H 98 07/18/20 00:36 07/17/20 22:26 07/17/20 22:26 07/17/20 22:26 07/17/20 22:26 - Laboratory Result Diagrams: 07/18/20 01:45 07/18/20 01:45 Laboratory results interpreted by me: 07/18/20 07/18/20 01:45 01:45 RDW 14.1 H Salicylates < 1.0 L Acetaminophen < 10 L - EKG Interpretation by Me EKG shows normal: Sinus rhythm Rate: Normal Rhythm: NSR Additional EKG results interpreted by me: 07/18/20 05:50 Sinus rhythm at a rate of 55. QTc 398. ST elevations likely early normal repol. No change from previous. Discharge - Discharge Clinical Impression: Anxiety, Encounter for behavioral health screening Condition: Stable Disposition: OTHER Instructions: Anxiety ([facility]) Referrals: MARION TREVIZO MD [Primary Care Provider] - Follow up as needed
[2020-07-18 02:06] LABS: ABSOLUTE BASOPHILS # (AUTO) 0.1 10^3/uL (0.0-0.2); ABSOLUTE EOSINOPHILS # (AUTO) 0.1 10^3/uL (0.0-0.6); ABSOLUTE LYMPHOCYTES (AUTO) 2.5 10^3/uL (0.5-4.7); ABSOLUTE MONOCYTES (AUTO) 0.9 10^3/uL (0.1-1.4); ABSOLUTE NEUT (AUTO) 6.8 10^3/uL (1.7-8.2); BASOPHILS % (AUTO) 0.7 % (0-2); EOSINOPHILS % (AUTO) 0.6 % (0-6); HEMATOCRIT 41.8 % (37.9-51.0); HEMOGLOBIN 14.4 g/dL (13.5-17.0); LYMPHOCYTES % (AUTO) 24.5 % (13-45); MEAN CORPUSCULAR HEMOGLOBIN 28.2 pg (27.0-33.4); MEAN CORPUSCULAR HGB CONC 34.3 g/dL (32.0-36.0); MEAN CORPUSCULAR VOLUME 82 fl (80-97); MONOCYTES % (AUTO) 8.5 % (3-13); PLATELET COUNT 232 10^3/uL (150-450); RED BLOOD COUNT 5.08 10^6/uL (4.35-5.55); RED CELL DISTRIBUTION WIDTH 14.1 % (11.5-14.0); SEGMENTED NEUTROPHILS % (AUTO) 65.7 % (42-78); TOTAL CELLS COUNTED % (AUTO) 100 %; WHITE BLOOD COUNT 10.4 10^3/uL (4.0-10.5)
[2020-07-18 02:10] LABS: APPEARANCE,URINE CLEAR; BILIRUBIN,URINE NEGATIVE (NEGATIVE); COLOR,URINE YELLOW; GLUCOSE, URINE NEGATIVE (NEGATIVE); KETONES,URINE NEGATIVE (NEGATIVE); LEUKOCYTE ESTERASE,URINE NEGATIVE (NEGATIVE); NITRITE,URINE NEGATIVE (NEGATIVE); PROTEIN,URINE NEGATIVE (NEGATIVE); URINE SPECIFIC GRAVITY 1.013; UROBILINOGEN,URINE NEGATIVE mg/dL (<2.0)
[2020-07-18 02:24] LABS: URINE AMPHETAMINES SCREEN NEGATIVE; URINE BARBITURATES SCREEN NEGATIVE; URINE BENZODIAZEPINES SCREEN NEGATIVE; URINE COCAINE SCREEN NEGATIVE; URINE MARIJUANA (THC) SCREEN NEGATIVE; URINE METHADONE SCREEN NEGATIVE; URINE PHENCYCLIDINE SCREEN NEGATIVE
[2020-07-18 02:37] LABS: ALKALINE PHOSPHATASE 61 U/L (38-126); ANION GAP 9 (5-19); ASPARTATE AMINO TRANSFERASE 20 U/L (17-59); BILIRUBIN,DIRECT 0.1 mg/dL (0.0-0.4); BILIRUBIN,TOTAL 0.9 mg/dL (0.2-1.3); BLOOD UREA NITROGEN 8 mg/dL (7-20); CALCIUM 9.6 mg/dL (8.4-10.2); CARBON DIOXIDE 28 mmol/L (22-30); CHLORIDE 103 mmol/L (98-107); GLUCOSE 96 mg/dL (75-110); POTASSIUM 4.3 mmol/L (3.6-5.0); TOTAL PROTEIN 6.3 g/dL (6.3-8.2)
[2020-07-18 02:39] LABS: ACETAMINOPHEN < 10 ug/mL (10-30); ALCOHOL < 10 mg/dL (NONE DETECTED); SALICYLATE < 1.0 mg/dL (2.0-20.0)
--- NOTE | 2020-07-18 11:51 | PSYCHOLOGICAL NOTE ---
Psych Note - Psych Note Date seen by psych provider: 07/18/20 Time seen by psych provider: 11:35 Psych Note: Presenting Problem: Panic Attack/Anxiety, reported suicidal ideation during the Panic Attack/Anxiety From [id number] obtained collateral and discussed plan of car for discharge from/with mother Gena ([phone]). Patient had provided the contact information. Mother confirmed what patient told clinician about having anxiety/panic attack, history of Schizophrenia, was just at medication provider where changes took place, have not been able to get the new medications from the pharmacy, and plan is to go get those medications as soon as discharged today. M other stated she is available for transportation and the plan is to go directly to the pharmacy to get the new medications.
[2020-07-18 12:08] VITALS: BP 109/63
--- NOTE | 2020-07-18 12:41 | PSYCHOLOGICAL NOTE ---
Psych Note - Psych Note Date seen by psych provider: 07/18/20 Time seen by psych provider: 10:48 Psych Note: [id number] Reason for Consult: panic attack Consent Permissions: mother Avery, Patient is a 30 year old male who presented to the [facility] ED today via EMS. Patient reports he was having a panic attack and these occur a couple of times a week. Patient denies suicidal ideations, plan, and intent. He also denies homicidal ideations. Patient goes to [facility] for medication management and was stopped on his Propranolol and started on Vistaril and Zoloft, however did not roller picker prescription yet due to pharmacy being closed. Patient is also pre scribed Risperidone 6mg twice a day and Clonidine .04mg at night. He reports medication compliance. Patient was admitted to [facility] 2 months ago and went to [facility] when he was 18 years old. Patient lives with his mother and states him and his mother plan to roller picker his new prescription today. Patient was alert and oriented to self, person, place, time and situation. Mood was content with congruent affect. He denied current SI/HI. Patient did not appear to be responding to internal stimuli as evidenced by fair eye contact and answering questions appropriately when addressed. Thought processes are linear and organized. Conversational speech was within normal limits for rate, tone and prosody. Attention and concentration is fair. Intellectual abilities are estimated to be average. Insight, judgment and impulse control were fair as evidenced reporting he complies with medications and plans to get his new medications today and start taking right away. Patient engages appropriately with clinician. Patient shows future forward goal oriented thinking by planning to roller picker new medications and plans to continue medication compliance. Clinical Presentation: anxiety attack IVC Criteria per [place] GS 122C Dangerous to others Within the relevant past the individual No has inflicted or attempted to inflict or threatened to inflict serious bodily harm on another AND No that there is a reasonable probability that this conduct will be repeated. OR No has acted in such a way as to create a substantial risk of serious bodily harm to another AND No that there is a reasonable probability that this conduct will be repeated. OR No has engaged in extreme destruction of property AND NO that there is a reasonable probability that this conduct will be repeated. Previous episodes of dangerousness to others, when applicable, may be considered when determining reasonable probability of future dangerous conduct. Clear, cogent, and convincing evidence that an individual has committed a homicide in the relevant past is prima facie evidence of dangerousness to others. Dangerous to self Within the relevant past the individual has done any of the following: acted in such a way as to show ALL of the following: No The individual would be unable without care, supervision, and the continued assistance of others not otherwise available, to exercise self- control, judgment, and discretion in the conduct of the individual's daily responsibilities and social relations or to satisfy the individual's need for nourishment, personal or medical care, mcc, or self-protection and safety. AND No There is a reasonable probability of the individual suffering serious physical debilitation within the near future unless adequate treatment is given. A showing of behavior that is grossly irrational, of actions that the individual is unable to control, of behavior that is grossly inappropriate to the situation, or of other evidence of severely impaired insight and judgment shall create a prima facie inference that the individual is unable to care for himself or herself. OR No has attempted suicide or threatened suicide A passive statement was made during panic attack; patient denies suicidal ideations, plan, and intent AND No that there is a reasonable probability of suicide unless adequate treatment is given OR No has mutilated himself or herself or attempted to mutilate himself or herself AND No that there is a reasonable probability of serious self-mutilation unless adequate treatment is given. NOTE: Previous episodes of dangerousness to self, when applicable, may be considered when determining reasonable probability of physical debilitation, suicide, or self-mutilation. Impression\plan: Patient is cleared from acute psychiatric services. He is not a danger to self or others. He denies suicidal ideations, plan, and intent. He also denies homicidal ideations. Patients medications were changed with outpatient provider and he began to have a panic attack. Apparently patient expressed suicidal ideations during panic attack, however he denies today. He is demonstrating future forward goal oriented thinking by planning to roller picker new medications and plans to continue medication compliance. Mother was in agreeance and does not feel patient is a danger to self. Mother plans to roller picker patient, be involved in plan of care, and roller picker new medications today. Patient is recommended to continue with outpatient medications to include Risperidone, Clonidine, Vistari (new), and Zoloft (new). Patients mother will pick him up and they will roller picker prescription today. Referral list was given to patient highlighting [facility] and [facility] mobile crisis numbers. Patient was instructed to follow up with outpatient provider and if symptoms worsen to call mobile crisis or return to the ED. Dr. Fine was consulted to care management of this patient; attending physicians in agreement with recommendations and disposition.
--- NOTE | 2020-07-18 13:06 | ER Document Report ---
Doctor's Note Notes: 07/18/20 13:05 Patient's vital signs and previous labs, diagnostic images reviewed. Reviewed mental health notes, nurse's notes and previous providers notes. VSS. Pt is in no distress at this time. Denies any SI or HI. General: A&Ox3. Answers questions appropriately. Heart: RRR Lungs: CTAB Psych: Flat affect A/P: Continue monitoring and rec's per MH. Normal diet will likely discharge home.
--- NOTE | 2020-07-18 13:28 | EKG REPORT ---
SEVERITY:- OTHERWISE NORMAL ECG - SINUS BRADYCARDIA ST ELEV, PROBABLE NORMAL EARLY REPOL PATTERN : Confirmed by: Tiny Suarez MD 18-Jul-2020 13:27:24
== END 2020-07-18 13:35 | disposition home or self-care (01) ==
LOC: ER 22:05
DX: F41.9 Anxiety disorder, unspecified (principal); Z00.8 Encounter for other general examination; F20.9 Schizophrenia, unspecified; F41.0 Panic disorder [episodic paroxysmal anxiety]; J45.909 Unspecified asthma, uncomplicated; F90.9 Attention-deficit hyperactivity disorder, unspecified type; Z79.899 Other long term (current) drug therapy
CPT/HCPCS: 36415; 80053; 80307; 81001; 85025; 93005; 93010; 99285

== ENCOUNTER 2020-07-22 20:26 | Emergency (ER) | payer SELFPAY ==
--- NOTE | 2020-07-22 21:05 | ER Document Report ---
ED Medical Screen (RME) - General Chief Complaint: Suicidal Ideation Stated Complaint: SUICIDAL THOUGHTS Time Seen by Provider: 07/22/20 20:54 Primary Care Provider: MARION TREVIZO MD [Primary Care Provider] - Follow up as needed Mode of Arrival: Ambulatory Information source: Patient, Parent Notes: Returns emergency room complaining of suicidal ideation. Patient states that the voices are telling him to hurt himself either by hanging himself cutting himself or burning himself. Mother is with him states that he has been here 2 times in the past 2 weeks and has been to [facility] this past . She states that she contacted her psychiatrist today these moods avoid been controlled with risperidone however they feel that this may not be working so we are doing a taper of this medication there are 150 mg of Seroquel nightly and have added Vistaril as well. Mother states that this is not working quick. She is concerned that he has never been this bad in the past. Physical examination: Patient is a well-nourished well-developed 22-year-old male no apparent distress on examination he does however refuse to do vital signs at this time. Cardiac: Regular rate and rhythm from auscultation. No murmurs are heard. Lungs: Bilateral breath sounds increased auscultation. Neuro: Patient is awake and alert and talking without any abnormalities. Psych: Patient has moderately flat affect is cold in discussing he wants to hurt himself. I have greeted and performed a rapid initial assessment of this patient. A comprehensive ED assessment and evaluation of the patient, analysis of test results and completion of the medical decision making process will be conducted by additional ED providers. Dictation of this chart was performed using voice recognition software; therefore, there may be some unintended grammatical errors. TRAVEL OUTSIDE OF THE [place] IN LAST 30 DAYS: No - Related Data Allergies/Adverse Reactions: lorazepam [From Ativan] Allergy (Verified 07/22/20 20:42) steroids Allergy (Uncoded 01/23/20 21:01) Past Medical History - Social History Frequency of alcohol use: None Drug Abuse: None Pulmonary Medical History: Reports: Hx Asthma Psychiatric Medical History: Reports: Hx Attention Deficit Hyperactivity Disorder, Hx Schizophrenia Past Surgical History: Reports: Hx Cholecystectomy - Immunizations Hx Diphtheria, Pertussis, Tetanus Vaccination: Yes Doctor's Discharge - Discharge Referrals: MARION TREVIZO MD [Primary Care Provider] - Follow up as needed
[2020-07-22 21:32] LABS: ABSOLUTE EOSINOPHILS # (AUTO) 0.1 10^3/uL (0.0-0.6); ABSOLUTE LYMPHOCYTES (AUTO) 2.3 10^3/uL (0.5-4.7); ABSOLUTE MONOCYTES (AUTO) 0.5 10^3/uL (0.1-1.4); ABSOLUTE NEUT (AUTO) 4.5 10^3/uL (1.7-8.2); BASOPHILS % (AUTO) 0.2 % (0-2); EOSINOPHILS % (AUTO) 1.3 % (0-6); HEMATOCRIT 38.1 % (37.9-51.0); HEMOGLOBIN 13.3 g/dL (13.5-17.0); LYMPHOCYTES % (AUTO) 31.2 % (13-45); MEAN CORPUSCULAR HEMOGLOBIN 28.6 pg (27.0-33.4); MEAN CORPUSCULAR HGB CONC 34.8 g/dL (32.0-36.0); MEAN CORPUSCULAR VOLUME 82 fl (80-97); MONOCYTES % (AUTO) 6.9 % (3-13); PLATELET COUNT 227 10^3/uL (150-450); RED BLOOD COUNT 4.64 10^6/uL (4.35-5.55); RED CELL DISTRIBUTION WIDTH 13.9 % (11.5-14.0); SEGMENTED NEUTROPHILS % (AUTO) 60.4 % (42-78); TOTAL CELLS COUNTED % (AUTO) 100 %; WHITE BLOOD COUNT 7.4 10^3/uL (4.0-10.5)
[2020-07-22 21:46] LABS: APPEARANCE,URINE CLEAR; BILIRUBIN,URINE NEGATIVE (NEGATIVE); COLOR,URINE YELLOW; GLUCOSE, URINE NEGATIVE (NEGATIVE); KETONES,URINE NEGATIVE (NEGATIVE); LEUKOCYTE ESTERASE,URINE NEGATIVE (NEGATIVE); NITRITE,URINE NEGATIVE (NEGATIVE); PROTEIN,URINE NEGATIVE (NEGATIVE); URINE SPECIFIC GRAVITY 1.016; UROBILINOGEN,URINE NEGATIVE mg/dL (<2.0)
[2020-07-22 21:49] LABS: ALBUMIN 4.3 g/dL (3.5-5.0); ALKALINE PHOSPHATASE 61 U/L (38-126); ANION GAP 10 (5-19); ASPARTATE AMINO TRANSFERASE 26 U/L (17-59); BILIRUBIN,TOTAL 0.7 mg/dL (0.2-1.3); BLOOD UREA NITROGEN 9 mg/dL (7-20); CALCIUM 9.5 mg/dL (8.4-10.2); CARBON DIOXIDE 24 mmol/L (22-30); CHLORIDE 105 mmol/L (98-107); GLUCOSE 98 mg/dL (75-110); POTASSIUM 3.9 mmol/L (3.6-5.0); TOTAL PROTEIN 6.8 g/dL (6.3-8.2)
[2020-07-22 21:50] LABS: ACETAMINOPHEN < 10 ug/mL (10-30); ALCOHOL < 10 mg/dL (NONE DETECTED); SALICYLATE < 1.0 mg/dL (2.0-20.0)
[2020-07-22 22:01] LABS: URINE AMPHETAMINES SCREEN NEGATIVE; URINE BARBITURATES SCREEN NEGATIVE; URINE BENZODIAZEPINES SCREEN NEGATIVE; URINE COCAINE SCREEN NEGATIVE; URINE MARIJUANA (THC) SCREEN NEGATIVE; URINE METHADONE SCREEN NEGATIVE; URINE PHENCYCLIDINE SCREEN NEGATIVE
--- NOTE | 2020-07-22 23:03 | ER Document Report ---
ED General - General Chief Complaint: Suicidal Ideation Stated Complaint: SUICIDAL THOUGHTS Time Seen by Provider: 07/22/20 20:54 Primary Care Provider: MARION TREVIZO MD [Primary Care Provider] - Follow up as needed Mode of Arrival: Ambulatory TRAVEL OUTSIDE OF THE [place] IN LAST 30 DAYS: No - HPI Notes: Patient is a 30-year-old male with a history of schizophrenia who comes into the emergency department for evaluation of suicidal thoughts, thoughts of self-harm, and increased auditory hallucination. He states that the voices are telling him to harm himself, such as and burn himself. He has had medication changes but they do not really seem to be helping. The patient wants to stay for help. He denies any homicidal ideation. No visual hallucinations at this time. Otherwise medically he states he has no complaints or concerns. He has been eating and drinking normally. No cough or shortness of breath. Normal bowel movements. - Related Data Allergies/Adverse Reactions: lorazepam [From Ativan] Allergy (Verified 07/22/20 20:42) steroids Allergy (Uncoded 01/23/20 21:01) Past Medical History - General Information source: Patient, Parent - Social History Smoking Status: Never Smoker Frequency of alcohol use: None Drug Abuse: None Family History: Reviewed & Not Pertinent Pulmonary Medical History: Reports: Hx Asthma Psychiatric Medical History: Reports: Hx Attention Deficit Hyperactivity Disorder, Hx Schizophrenia Past Surgical History: Reports: Hx Cholecystectomy - Immunizations Hx Diphtheria, Pertussis, Tetanus Vaccination: Yes Review of Systems - Review of Systems Constitutional: No symptoms reported EENT: No symptoms reported Cardiovascular: No symptoms reported Respiratory: No symptoms reported Gastrointestinal: No symptoms reported Genitourinary: No symptoms reported Musculoskeletal: No symptoms reported Skin: No symptoms reported Neurological/Psychological: See HPI -: Yes All other systems reviewed and negative Physical Exam - Notes Notes: This is a very pleasant 30-year-old male who appears his stated age, no acute distress. He is sleeping when I walk into the room, has an exaggerated startle reflex when I wake him. Otherwise, he is calm and cooperative. He does not appear to be reacting to any internal stimuli. He makes good eye contact. Vital signs reviewed, please refer to chart. Head is normocephalic, atraumatic. Pupils equal round, reactive to light. Neck is supple without meningismus. He art is regular rate and rhythm. Lungs are clear to auscultation bilaterally. Abdomen is soft, nontender, normoactive bowel sounds throughout. Extremities without cyanosis, clubbing. Posterior calves are nontender. Peripheral pulses are equal. Skin is warm and dry. Patient is awake, alert, neurological exam is nonfocal. Course - Re-evaluation Re-evalutation: 07/22/20 23:02 Patient presents to the emergency department for evaluation of suicidal thoughts and increased auditory hallucinations. He states that he wants to be here to get help. He came in with his mother and is voluntarily waiting to be seen by the psychosocial team. Otherwise he is medically stable. His laboratory investigations revealed no significant abnormality. Consultation placed to the psychosocial team. He is medically cleared for further evaluation. - Laboratory Result Diagrams: 07/22/20 21:08 07/22/20 21:08 Laboratory results interpreted by me: 07/22/20 07/22/20 21:08 21:08 Hgb 13.3 L Salicylates < 1.0 L Acetaminophen < 10 L - EKG Interpretation by Me Additional EKG results interpreted by me: 07/22/20 23:02 Sinus mechanism with rate of 76 bpm, large amount of baseline artifact noted. Normal axis and intervals. Nonspecific ST changes, but no acute elevation concerning for infarction. No significant change compared to prior study of 07/18/2020. Discharge - Discharge Clinical Impression: Auditory hallucinations, Suicidal ideations Condition: Stable Disposition: OTHER Referrals: MARION TREVIZO MD [Primary Care Provider] - Follow up as needed
[2020-07-23] MEDS ORDERED: ROPINIROLE HCL 2 MG TABLET PO ONE (00:22)
[2020-07-23] MEDS ORDERED: ROPINIROLE HCL 2 MG TABLET ONE (01:11)
--- NOTE | 2020-07-23 07:24 | EKG REPORT ---
SEVERITY:- NORMAL ECG - SINUS RHYTHM : Confirmed by: Nathaniel Feliciano MD 23-Jul-2020 07:23:59
--- NOTE | 2020-07-23 14:17 | ER Document Report ---
Doctor's Note Notes: 07/23/20 14:17 S: Assumed care of patient from the nighttime provider team. Apparently patient came in last night with auditory hallucinations. Apparently voices were telling him to set himself on fire. Was not felt that he met IVC paperwork. But a psychiatric consult was placed. Around on the patient he states he is feeling a lot better this morning. He did recently have Seroquel added onto his daily medicine regiment. He has not had time to know if this is going to help him. He denies any complaints at this point. He denies any voices or wanting to hurt himself. He denies any homicidal ideations. O: PHYSICAL EXAMINATION: GENERAL: Well-appearing, well-nourished and in no acute distress. HEAD: Atraumatic, normocephalic. NECK: Normal range of motion, supple without lymphadenopathy LUNGS: Breath sounds clear to auscultation bilaterally and equal. No wheezes rales or rhonchi. HEART: Regular rate and rhythm without murmurs ABDOMEN: Soft, nontender, normoactive bowel sounds. No guarding, no rebound. No masses appreciated. PSYCH: Normal mood, flat affect. Denies any HI, SI, hallucinations currently SKIN: Warm, Dry, normal turgor, no rashes or lesions noted. A/P: Spoke with the behavioral health team. Patient does not meet IVC criteria. He is also not complaining of any hallucinations or SI currently. He is plugged in with pride. The plan will be to have him follow-up with [facility] outpatient. He will continue his regular medicines. Since he just started on Seroquel yesterday, we have encouraged him to start that medicine to see if that helps him. He has been encouraged to return if any worsening symptoms. Mom has been consulted and she agrees with the plan.
[2020-07-23 16:26] VITALS: BP 132/74
--- NOTE | 2020-07-23 16:40 | PSYCHOLOGICAL NOTE ---
Psych Note - Psych Note Date seen by psych provider: 07/23/20 Time seen by psych provider: 11:16 Psych Note: [id number] Reason for Consult: auditory hallucinations and suicidal ideations Consent Permissions: mother Avery, Patient is a 30 year old male who presented to the [facility] ED today voluntarily. Patient reports he was experiencing voices telling him to burn, stab, and drown himself. Patient reported experiencing auditory hallucinations that are command in nature, however it is inconsistent with known psychosis. Upon assessment today, patient denies suicidal ideations, plan, and intent. He also denies homicidal ideations. Patient goes to [facility] for medication management and was there yesterday where they added Seroquel to his home medications. Patient is a poor historian, but states this is the only change made from the last time he was seen. Last admission, last week, patient had reported being prescribed, Risperidone, Clonidine, Vistaril, and Zoloft. Patient was admitted to [facility] 2 months ago and went to [facility] when he was 18 years old. Patient lives with his mother and states him and his mother plan to fruit picker his new prescription today. He has a history of passive suicidal ideations and has been seen in the ED in December 2019 and last week. Patient was alert and oriented to self, person, place, time and situation. Mood was content with congruent affect. He denied current homicidal ideations. Patie nt denies suicidal ideation, plan, and intent. Patient did not appear to be responding to internal stimuli as evidenced by fair eye contact and answering questions appropriately when addressed. Thought processes are linear and organized. Conversational speech was within normal limits for rate, tone and prosody. Attention and concentration is fair. Intellectual abilities are estimated to be below average. Insight, judgment and impulse control were fair as evidenced reporting he complies with medications and coming to the ED voluntarily when he experiences suicidal ideation. Patient engages a ppropriately with clinician. Patient shows future forward goal oriented thinking by discussing plans to continue taking his medication and talking about the upcoming holiday. Clinical Presentation: suicidal ideation, denies plan and intent; alleged auditory hallucinations IVC Criteria per [place] GS 122C Dangerous to others Within the relevant past the individual No has inflicted or attempted to inflict or threatened to inflict serious bodily harm on another AND No that there is a reasonable probability that this conduct will be repeated. OR No has acted in such a way as to create a substantial risk of serious bodily harm to another AND No that there is a reasonable probability that this conduct will be repeated. OR No has engaged in extreme destruction of property AND NO that there is a reasonable probability that this conduct will be repeated. Previous episodes of dangerousness to others, when applicable, may be considered when determining reasonable probability of future dangerous conduct. Clear, cogent, and convincing evidence that an individual has committed a homicide in the relevant past is prima facie evidence of dangerousness to others. Dangerous to self Within the relevant past the individual has done any of the following: acted in such a way as to show ALL of the following: No The individual would be unable without care, supervision, and the continued assistance of others not otherwise available, to exercise self- control, judgment, and discretion in the conduct of the individual's daily responsibilities and social relations or to satisfy the individual's need for nourishment, personal or medical care, detention, or self-protection and safety. AND No There is a reasonable probability of the individual suffering serious physical debilitation within the near future unless adequate treatment is given. A showing of behavior that is grossly irrational, of actions that the individual is unable to control, of behavior that is grossly inappropriate to the situation, or of other evidence of severely impaired insight and judgment shall create a prima facie inference that the individual is unable to care for himself or herself. OR Yes has attempted suicide or threatened suicide Patient threatened suicidal ideation, but upon assessment denies and denies plan and intent AND No that there is a reasonable probability of suicide unless adequate treatment is given Patient historically comes to the ED when he experiences suicidal ideations, to include passive. He has a family support system in place and outpatient providers in place. OR No has mutilated himself or herself or attempted to mutilate himself or herself AND No that there is a reasonable probability of serious self-mutilation unless adequate treatment is given. NOTE: Previous episodes of dangerousness to self, when applicable, may be considered when determining reasonable probability of physical debilitation, suicide, or self-mutilation. Impression\\plan: Patient is cleared from acute psychiatric services. Patient came to the ED expressing auditory hallucinations and suicidal ideations. During assessment, patient denies suicidal ideation, plan, and intent. Patient reports hearing voices telling him to burn, stab, and drown himself. Patient reported experiencing auditory hallucinations that are command in nature, however it is inconsistent with known psychosis. Patient is well known to the ED and historically presents with alleged hallucinations and passive suicidal ideations. Patient is well aware of the "voices" he is experiencing and those who are truly experiencing auditory hallucinations cannot differentiate "voices" from reality and instead just react. Patient was not observed to be experiencing hallucinations as evidenced by making appropriate eye contact, remaining on task during assessment, and did not appear to be responding to internal stimuli. Patient does not meet IVC criteria and is not a danger to himself. He is demonstrating future forward goal oriented thinking by planning to continue his medication management and discussing upcoming holiday. Patient resides with his mother who agrees to be a part of his plan of care. Patient is recommended to continue his outpatient medications prescribed through [facility]. Patient was given a community outpatient referral list to include phone numbers for [facility] and [facility] mobile crisis. He was informed if he experiences worsening or a significant change in his symptoms, notify the physician immediately, utilize mobile crisis, or return to the Emergency Department at any time for re- evaluation. Dr. Fine was consulted to care management of this patient; attending physicians in agreement with recommendations and disposition.
== END 2020-07-23 16:15 | disposition home or self-care (01) ==
LOC: ER 20:26
DX: R45.851 Suicidal ideations (principal); R44.0 Auditory hallucinations; Z90.49 Acquired absence of other specified parts of digestive tract
CPT/HCPCS: 36415; 80053; 80307; 81001; 85025; 93005; 93010; 99285